=== PATIENT | male | born 1950 | race Caucasian/White ===

== ENCOUNTER → 2017-11-28 | Outpatient (CLI) | payer OTHER ==
[~2017-11-28] MED LIST: ARIP10 PO; CEPH500 PO; DOXY100 PO; LISI20; METO25ER; OXYACE5T PO; PRED10 PO; PROZAC PO; SULTRIDS PO
== END | disposition home or self-care (01) ==
LOC: LAB SHORT 07:40 → LAB 07:40
DX: C44.519 Basal cell carcinoma of skin of other part of trunk (principal)
CPT/HCPCS: 88305

== ENCOUNTER → 2018-10-19 | Outpatient (CLI) | payer OTHER | END | disposition home or self-care (01) | LOC: LAB SHORT 07:45 → LAB 07:45 | DX: D48.5 Neoplasm of uncertain behavior of skin (principal) | CPT/HCPCS: 88305 ==

== ENCOUNTER → 2018-11-06 | Outpatient (CLI) | payer OTHER | END | disposition home or self-care (01) | LOC: LAB SHORT 08:39 → PLD 08:39 | DX: C44.519 Basal cell carcinoma of skin of other part of trunk (principal) | CPT/HCPCS: 88305 ==

== ENCOUNTER → 2018-11-21 | Outpatient (CLI) | payer OTHER | LOC: PLD 15:07 → LAB SHORT 15:07 | DX: C44.310 Basal cell carcinoma of skin of unspecified parts of face (principal) | CPT/HCPCS: 88305 ==

== ENCOUNTER → 2018-11-28 | Outpatient (CLI) | payer OTHER | END | disposition home or self-care (01) | LOC: LAB SHORT 08:14 → PLD 08:14 | DX: D04.5 Carcinoma in situ of skin of trunk (principal) | CPT/HCPCS: 88305 ==

== ENCOUNTER → 2019-01-09 | Outpatient (CLI) | payer OTHER | END | disposition home or self-care (01) | LOC: LAB SHORT 08:23 → PLD 08:23 | DX: D04.71 Carcinoma in situ of skin of right lower limb, including hip (principal) | CPT/HCPCS: 88305 ==

== ENCOUNTER → 2020-03-03 | Outpatient (CLI) | payer OTHER | END | disposition home or self-care (01) | LOC: LAB SHORT 15:05 → PLD 15:05 | DX: C44.612 Basal cell carcinoma of skin of right upper limb, including shoulder (principal); D04.62 Carcinoma in situ of skin of left upper limb, including shoulder | CPT/HCPCS: 88305 ==

== ENCOUNTER → 2020-03-18 | Outpatient (CLI) | payer OTHER | END | disposition home or self-care (01) | LOC: LAB SHORT 11:31 → LAB UCHC 11:31 | DX: I10 Essential (primary) hypertension (principal) | CPT/HCPCS: 82043 ==

== ENCOUNTER → 2020-03-20 | Outpatient (CLI) | payer OTHER | LOC: LAB SHORT 15:44 → PLD 15:44 | DX: C44.612 Basal cell carcinoma of skin of right upper limb, including shoulder (principal) | CPT/HCPCS: 88305 ==

== ENCOUNTER → 2020-05-07 | Outpatient (CLI) | payer OTHER | LOC: LAB SHORT 17:16 | DX: Z11.59 Encounter for screening for other viral diseases (principal) | CPT/HCPCS: 86803 ==

== ENCOUNTER → 2020-12-10 | Outpatient (CLI) | payer OTHER | END | disposition home or self-care (01) | LOC: LAB 11:44 → LAB SHORT 11:44 | DX: D04.62 Carcinoma in situ of skin of left upper limb, including shoulder (principal); L73.8 Other specified follicular disorders | CPT/HCPCS: 88305 ==

== ENCOUNTER → 2021-12-30 | Outpatient (CLI) | payer OTHER | END | disposition home or self-care (01) | LOC: LAB SHORT 07:43 → PLD 07:43 | DX: D04.62 Carcinoma in situ of skin of left upper limb, including shoulder (principal) | CPT/HCPCS: 88305 ==

== ENCOUNTER → 2022-08-31 | Outpatient (CLI) | payer OTHER ==
[2022-08-31 19:57] LABS: Thyroid Stimulating Hormone 1.89 uIU/mL (0.360-4.800)
== END | disposition home or self-care (01) ==
LOC: LAB 15:29 → LAB SHORT 15:29
PROVIDERS: Family Medicine
DX: F03.90 Unspecified dementia, unspecified severity, without behavioral disturbance, psychotic disturbance, mood disturbance, and anxiety (principal); R41.89 Other symptoms and signs involving cognitive functions and awareness
CPT/HCPCS: 82607; 82746; 84443

== ENCOUNTER 2022-09-29 16:48 | Emergency (ER) | payer OTHER ==
[~2022-09-29] VITALS: Ht 172.7 cm; Wt 63.5 kg
[2022-09-29] MEDS ORDERED: ASPI81CH PO (17:22)
[2022-09-29] MEDS ORDERED: Metformin HCl750 MG PO (17:23)
[2022-09-29] MEDS ORDERED: ABILIFY5 MG PO (17:23)
[2022-09-29] MEDS ORDERED: HYDR10 PO (17:23)
[2022-09-29] MEDS ORDERED: LISI20 PO (17:23)
[2022-09-29] MEDS ORDERED: ZOLOFT10013 PO (17:24)
[2022-09-29] MEDS ORDERED: BUPROPION XL150 M1 PO (17:24)
[2022-09-29] MEDS ORDERED: TRAZ150T57 PO (17:24)
[2022-09-29] MEDS ORDERED: CARVEDILOL3.125 MG PO (17:25)
[2022-09-29] MEDS ORDERED: AMLODIPINE BESY10 MG PO (17:25)
[2022-09-29] MEDS ORDERED: DONEPEZIL HCL10 M1 PO (17:25)
[2022-09-29] MEDS ORDERED: NEURONTIN300 MG PO (17:25)
[2022-09-29 17:51] LABS: BASOPHILS ABSOLUTE AUTO 0.02 K/mm3 (0.00-0.23); BASOPHILS PERCENT AUTO 0 % (0-2); EOSINOPHILS PERCENT AUTO 1 % (0-6); Hematocrit 40.3 % (37.0-53.0); Hemoglobin 13.4 g/dL (13.5-17.5); IMMATURE GRAN ABSOLUTE AUTO 0.03 K/mm3 (0.00-0.10); IMMATURE GRAN PERCENT AUTO 0 % (0-1); LYMPHOCYTES PERCENT AUTO 24 % (21-46); MONOCYTES ABSOLUTE AUTO 0.35 K/mm3 (0.16-1.47); MONOCYTES PERCENT AUTO 4 % (4-13); Mean Corpuscular HGB Conc 33.3 g/dL (31.5-36.5); Mean Corpuscular Volume 84 fL (80-100); Mean Platelet Volume 9.6 fL (9.1-12.4); NEUTROPHILS ABSOLUTE AUTO 5.69 K/mm3 (1.96-9.15); NEUTROPHILS PERCENT AUTO 70 % (41-73); Platelet Count 285 K/mm3 (150-400); RDW Coefficient Variation 12.8 % (11.7-14.2); RDW Standard Deviation 39.7 fL (35.1-46.3); Red Blood Cell Count 4.78 M/mm3 (4.30-5.90); White Blood Cell Count 8.19 K/mm3 (4.00-11.30)
[2022-09-29 18:12] LABS: Albumin, Blood 3.6 g/dL (3.4-5.0); Albumin/Globulin Ratio 0.9 (0.8-1.8); Bilirubin, Total 0.5 mg/dL (0.1-1.0); Bun/Creatinine Ratio 18.2 (12.0-20.0); Calcium, Blood 9.1 mg/dL (8.5-10.1); Creatinine, Blood 2.74 mg/dL (0.60-1.20); Globulin, Blood 4.1 g/dL (2.2-4.0); Potassium, Blood 3.8 mmol/L (3.5-5.5); Total Protein, Blood 7.7 g/dL (6.4-8.2)
[2022-09-29 18:35] LABS: Creatine Kinase MB 19.8 ng/mL (0.0-3.6); Magnesium, Blood 1.6 mg/dL (1.6-2.4)
[2022-09-29 18:42] LABS: Ethanol (Alcohol), Blood, Med <3 mg/dL
[2022-09-29 19:01] LABS: CPK Creatine Kinase 3293 U/L (39-308); Creatine Kinase MB Index 0.6 (0.0-4.0)
[2022-09-29 19:33] LABS: Influenza A, PCR NEGATIVE (NEGATIVE); Influenza B, PCR NEGATIVE (NEGATIVE); Resp Syncytial Virus, PCR NEGATIVE (NEGATIVE); SARS-Cov-2 (COVID-19) PCR, MMC NEGATIVE (NEGATIVE)
[2022-09-29 21:19] VITALS: BP 160/107
== END 2022-09-29 21:38 | disposition home or self-care (01) ==
LOC: ER 16:48
PROVIDERS: Emergency Medicine; Student in an Organized Health Care Education/Training Program
DX: Z04.3 Encounter for examination and observation following other accident (principal); R53.1 Weakness; F03.90 Unspecified dementia, unspecified severity, without behavioral disturbance, psychotic disturbance, mood disturbance, and anxiety; W19.XXXA Unspecified fall, initial encounter; Z79.899 Other long term (current) drug therapy; Z79.82 Long term (current) use of aspirin; Z79.84 Long term (current) use of oral hypoglycemic drugs; Z87.891 Personal history of nicotine dependence
CPT/HCPCS: 0241U; 70450; 71045; 80053; 82550; 82553; 83735; 84443; 84484; 85025; 93005; 93010; 96360; 96361; 99285-25; G0480; J7120

== ENCOUNTER 2022-10-22 14:18 | Emergency (ER) | payer OTHER ==
[~2022-10-22] VITALS: Ht 172.7 cm; Wt 90.7 kg
[~2022-10-22 14:18] MED LIST changes: +ABILIFY5 MG PO; +AMLODIPINE BESY10 MG PO; +ASPI81CH PO; +BUPROPION XL150 M1 PO; +CARVEDILOL3.125 MG PO; +DONEPEZIL HCL10 M1 PO; +HYDR10 PO; +LISI20 PO; +Metformin HCl750 MG PO; +NEURONTIN300 MG PO; +TRAZ150T57 PO; +ZOLOFT10013 PO
[2022-10-22 16:02] LABS: BASOPHILS ABSOLUTE AUTO 0.03 K/mm3 (0.00-0.23); BASOPHILS PERCENT AUTO 0 % (0-2); EOSINOPHILS ABSOLUTE AUTO 0.19 K/mm3 (0.00-0.68); EOSINOPHILS PERCENT AUTO 2 % (0-6); Hematocrit 42.7 % (37.0-53.0); IMMATURE GRAN ABSOLUTE AUTO 0.02 K/mm3 (0.00-0.10); IMMATURE GRAN PERCENT AUTO 0 % (0-1); LYMPHOCYTES ABSOLUTE AUTO 2.56 K/mm3 (0.84-5.20); LYMPHOCYTES PERCENT AUTO 33 % (21-46); MONOCYTES ABSOLUTE AUTO 0.41 K/mm3 (0.16-1.47); MONOCYTES PERCENT AUTO 5 % (4-13); Mean Corpuscular HGB 28.6 pg (26.0-34.0); Mean Corpuscular HGB Conc 32.8 g/dL (31.5-36.5); Mean Corpuscular Volume 87 fL (80-100); NEUTROPHILS ABSOLUTE AUTO 4.55 K/mm3 (1.96-9.15); NEUTROPHILS PERCENT AUTO 59 % (41-73); Platelet Count 294 K/mm3 (150-400); RDW Coefficient Variation 13.3 % (11.7-14.2); RDW Standard Deviation 41.9 fL (35.1-46.3); White Blood Cell Count 7.76 K/mm3 (4.00-11.30)
[2022-10-22 16:21] LABS: Albumin/Globulin Ratio 0.9 (0.8-1.8); Bilirubin, Total 0.5 mg/dL (0.1-1.0); Bun/Creatinine Ratio 14.8 (12.0-20.0); Calcium, Blood 8.5 mg/dL (8.5-10.1); Creatinine, Blood 1.82 mg/dL (0.60-1.20); Globulin, Blood 4.5 g/dL (2.2-4.0); Potassium, Blood 4.2 mmol/L (3.5-5.5); Total Protein, Blood 8.5 g/dL (6.4-8.2)
[2022-10-22 19:42] VITALS: BP 200/104
== END 2022-10-22 19:58 | disposition home or self-care (01) ==
LOC: ER 14:18
PROVIDERS: Physician Assistant
DX: I10 Essential (primary) hypertension (principal); E11.9 Type 2 diabetes mellitus without complications; Z79.82 Long term (current) use of aspirin; Z79.84 Long term (current) use of oral hypoglycemic drugs; Z79.899 Other long term (current) drug therapy; Z87.891 Personal history of nicotine dependence
CPT/HCPCS: 80053; 84484; 85025; 93005; 93010; J0360

== ENCOUNTER 2022-12-28 08:00 | Emergency (ER) | payer OTHER ==
[~2022-12-28] VITALS: Ht 172.7 cm; Wt 77.1 kg
[~2022-12-28 08:00] MED LIST changes: +ABILIFY MYCITE2 M2 PO; +ALDACTONE25 MG PO; +ATOR40TA PO; +BUPR100ER PO; -BUPROPION XL150 M1 PO; +Budeprion Xl300 MG PO; +CARV6.25 PO; +Cyclobenzaprine5 MG PO; +FEROSUL325 M1 PO; +FISH OIL 1,2001 EAC4 PO; +GLIP5ER PO; +HYDCHL25 PO; +HYDRA50 PO; +PROAIR RESPICL90 MCG INH; +VITAMIN D31250 MC2 PO; +Zoloft50 MG PO
[2022-12-28 09:06] LABS: BASOPHILS ABSOLUTE AUTO 0.03 K/mm3 (0.00-0.23); BASOPHILS PERCENT AUTO 0 % (0-2); EOSINOPHILS PERCENT AUTO 2 % (0-6); Hematocrit 43.9 % (37.0-53.0); Hemoglobin 14.2 g/dL (13.5-17.5); IMMATURE GRAN ABSOLUTE AUTO 0.01 K/mm3 (0.00-0.10); IMMATURE GRAN PERCENT AUTO 0 % (0-1); LYMPHOCYTES ABSOLUTE AUTO 2.49 K/mm3 (0.84-5.20); LYMPHOCYTES PERCENT AUTO 30 % (21-46); MONOCYTES ABSOLUTE AUTO 0.52 K/mm3 (0.16-1.47); MONOCYTES PERCENT AUTO 6 % (4-13); Mean Corpuscular HGB 28.4 pg (26.0-34.0); Mean Corpuscular HGB Conc 32.3 g/dL (31.5-36.5); Mean Corpuscular Volume 88 fL (80-100); Mean Platelet Volume 10.7 fL (9.1-12.4); NEUTROPHILS ABSOLUTE AUTO 5.04 K/mm3 (1.96-9.15); NEUTROPHILS PERCENT AUTO 61 % (41-73); Platelet Count 217 K/mm3 (150-400); RDW Coefficient Variation 13.1 % (11.7-14.2); RDW Standard Deviation 42.2 fL (35.1-46.3); White Blood Cell Count 8.29 K/mm3 (4.00-11.30)
[2022-12-28 09:29] LABS: Bilirubin, Total 0.6 mg/dL (0.1-1.0); Bun/Creatinine Ratio 14.1 (12.0-20.0); Creatinine, Blood 3.19 mg/dL (0.60-1.20); Globulin, Blood 4.2 g/dL (2.2-4.0); Potassium, Blood 3.7 mmol/L (3.5-5.5); Total Protein, Blood 8.2 g/dL (6.4-8.2)
[2022-12-28 10:53] VITALS: BP 153/93
== END 2022-12-28 11:40 | disposition home or self-care (01) ==
LOC: ER 08:00
PROVIDERS: Emergency Medicine
DX: I12.9 Hypertensive chronic kidney disease with stage 1 through stage 4 chronic kidney disease, or unspecified chronic kidney disease (principal); E11.22 Type 2 diabetes mellitus with diabetic chronic kidney disease; N18.9 Chronic kidney disease, unspecified; S80.02XA Contusion of left knee, initial encounter; S80.01XA Contusion of right knee, initial encounter; S50.02XA Contusion of left elbow, initial encounter; S50.01XA Contusion of right elbow, initial encounter; S30.811A Abrasion of abdominal wall, initial encounter; F17.200 Nicotine dependence, unspecified, uncomplicated; Z79.82 Long term (current) use of aspirin; Z79.899 Other long term (current) drug therapy; W19.XXXA Unspecified fall, initial encounter
CPT/HCPCS: 80053; 85025; J7030

== ENCOUNTER 2023-01-05 13:37 | Emergency (ER) | payer OTHER ==
[~2023-01-05] VITALS: Ht 177.8 cm; Wt 81.7 kg
[2023-01-05 14:11] LABS: Source, Urine Voided
[2023-01-05 14:14] LABS: BASOPHILS ABSOLUTE AUTO 0.02 K/mm3 (0.00-0.23); BASOPHILS PERCENT AUTO 0 % (0-2); EOSINOPHILS PERCENT AUTO 0 % (0-6); Hematocrit 40.3 % (37.0-53.0); Hemoglobin 13.1 g/dL (13.5-17.5); IMMATURE GRAN ABSOLUTE AUTO 0.03 K/mm3 (0.00-0.10); IMMATURE GRAN PERCENT AUTO 0 % (0-1); LYMPHOCYTES PERCENT AUTO 21 % (21-46); MONOCYTES ABSOLUTE AUTO 0.73 K/mm3 (0.16-1.47); MONOCYTES PERCENT AUTO 9 % (4-13); Mean Corpuscular HGB 28.5 pg (26.0-34.0); Mean Corpuscular HGB Conc 32.5 g/dL (31.5-36.5); Mean Corpuscular Volume 88 fL (80-100); Mean Platelet Volume 10.7 fL (9.1-12.4); NEUTROPHILS ABSOLUTE AUTO 5.41 K/mm3 (1.96-9.15); NEUTROPHILS PERCENT AUTO 69 % (41-73); Platelet Count 241 K/mm3 (150-400); RDW Coefficient Variation 13.2 % (11.7-14.2); RDW Standard Deviation 41.9 fL (35.1-46.3); White Blood Cell Count 7.79 K/mm3 (4.00-11.30)
[2023-01-05 14:30] LABS: Appearance, Urine Clear (Clear); Bilirubin, Urine Neg (Neg); Blood, Urine 2+ (Neg); Color, Urine Yellow (P-Yellow); Glucose Qualitative, Urine 1+ (Neg); Ketones, Urine Neg (Neg); Leukocyte Esterase, Urine Neg (Neg); Nitrite, Urine Neg (Neg); Protein, Urine 4+ (Neg); Urobilinogen, Urine NORM (Normal)
[2023-01-05 14:42] LABS: Albumin, Blood 3.7 g/dL (3.4-5.0); Albumin/Globulin Ratio 0.9 (0.8-1.8); Bilirubin, Total 0.4 mg/dL (0.1-1.0); Bun/Creatinine Ratio 17.6 (12.0-20.0); Creatinine, Blood 1.99 mg/dL (0.60-1.20); Globulin, Blood 4.3 g/dL (2.2-4.0)
[2023-01-05 14:50] LABS: Bacteria Many /hpf; Squamous Epithelial Cells Rare /hpf (Few)
[2023-01-05 19:31] VITALS: BP 196/100
== END 2023-01-05 20:24 | disposition home or self-care (01) ==
LOC: ER 13:37
PROVIDERS: Emergency Medicine
DX: S00.12XA Contusion of left eyelid and periocular area, initial encounter (principal); W18.30XA Fall on same level, unspecified, initial encounter; F17.200 Nicotine dependence, unspecified, uncomplicated; Z79.51 Long term (current) use of inhaled steroids; Z79.899 Other long term (current) drug therapy; E11.9 Type 2 diabetes mellitus without complications
CPT/HCPCS: 70450; 70486; 71046; 72125; 80053; 81001; 85025; 87086; 93005; 93010; 96360; 99285-25; J7030

== ENCOUNTER 2023-01-06 16:54 | Inpatient (IN) | payer OTHER ==
[~2023-01-06] VITALS: Ht 172.7 cm; Wt 71.1 kg
[2023-01-06 18:00] LABS: BASOPHILS ABSOLUTE AUTO 0.01 K/mm3 (0.00-0.23); BASOPHILS PERCENT AUTO 0 % (0-2); EOSINOPHILS ABSOLUTE AUTO 0.01 K/mm3 (0.00-0.68); EOSINOPHILS PERCENT AUTO 0 % (0-6); Hemoglobin 13.9 g/dL (13.5-17.5); IMMATURE GRAN ABSOLUTE AUTO 0.03 K/mm3 (0.00-0.10); IMMATURE GRAN PERCENT AUTO 1 % (0-1); LYMPHOCYTES ABSOLUTE AUTO 1.51 K/mm3 (0.84-5.20); LYMPHOCYTES PERCENT AUTO 23 % (21-46); MONOCYTES ABSOLUTE AUTO 0.55 K/mm3 (0.16-1.47); MONOCYTES PERCENT AUTO 8 % (4-13); Mean Corpuscular HGB 28.7 pg (26.0-34.0); Mean Corpuscular HGB Conc 33.1 g/dL (31.5-36.5); Mean Corpuscular Volume 87 fL (80-100); Mean Platelet Volume 10.8 fL (9.1-12.4); NEUTROPHILS ABSOLUTE AUTO 4.52 K/mm3 (1.96-9.15); NEUTROPHILS PERCENT AUTO 68 % (41-73); Platelet Count 247 K/mm3 (150-400); RDW Coefficient Variation 13.2 % (11.7-14.2); RDW Standard Deviation 41.1 fL (35.1-46.3); Red Blood Cell Count 4.85 M/mm3 (4.30-5.90); White Blood Cell Count 6.63 K/mm3 (4.00-11.30)
[2023-01-06 18:18] LABS: Magnesium, Blood 2.1 mg/dL (1.6-2.4); Salicylate <1.7 mg/dL (2.8-20.0)
[2023-01-06 18:26] LABS: Alanine Aminotransfer (ALT/SGP 27 U/L (12-78); Albumin, Blood 3.8 g/dL (3.4-5.0); Albumin/Globulin Ratio 0.8 (0.8-1.8); Alk Phos 96 U/L (50-136); Anion Gap 5 mmol/L (6-16); Aspartate Aminotrans (AST/SGOT 36 U/L (12-37); Bilirubin, Total 0.4 mg/dL (0.1-1.0); Blood Urea Nitrogen 44 mg/dL (8-24); CO2, Blood 28 mmol/L (21-32); Calcium, Blood 9.2 mg/dL (8.5-10.1); Chloride, Blood 108 mmol/L (98-108); Globulin, Blood 4.7 g/dL (2.2-4.0); Glomerular Filtration Rate 33 (60-); Glucose, Blood 102 mg/dL (70-99); Phosphorus, Blood 3.7 mg/dL (2.5-4.9); Sodium, Blood 141 mmol/L (136-145); Total Protein, Blood 8.5 g/dL (6.4-8.2)
[2023-01-06 18:27] LABS: Acetaminophen, Random <2.0 ug/mL (10.0-30.0)
[2023-01-06 18:27] LABS: International Normalized Ratio 0.96; Prothrombin Time Results 10.1 Sec (9.7-11.5)
[2023-01-06 18:50] LABS: Base Excess Venous 3.3 mmol/L; Bicarbonate Venous 26.7 mmol/L (24.0-30.0); PCO2 Venous 44.9 mmHg (38-42)
[2023-01-06 18:50] LABS: Source, Urine Clean Catch
[2023-01-06 18:56] LABS: Bilirubin, Urine Neg (Neg); Blood, Urine 3+ (Neg); Color, Urine Yellow (P-Yellow); Glucose Qualitative, Urine Neg (Neg); Ketones, Urine Neg (Neg); Leukocyte Esterase, Urine Neg (Neg); Nitrite, Urine Neg (Neg); Protein, Urine 3+ (Neg); Urobilinogen, Urine NORM (Normal)
[2023-01-06 19:04] LABS: Bacteria Few /hpf; Squamous Epithelial Cells Rare /hpf (Few); White Blood Cells, Urine 0-2 /hpf (0-5)
[2023-01-06 19:10] LABS: Appearance, Urine Hazy (Clear)
[2023-01-06 19:35] LABS: Influenza A, PCR NEGATIVE (NEGATIVE); Influenza B, PCR NEGATIVE (NEGATIVE); Resp Syncytial Virus, PCR NEGATIVE (NEGATIVE)
[2023-01-06 20:14] LABS: SARS-Cov-2 (COVID-19) PCR, MMC POSITIVE (NEGATIVE)
[2023-01-06 23:42] VITALS: BP 164/89
[2023-01-07 05:18] VITALS: BP 122/74
[2023-01-07 05:37] LABS: BASOPHILS ABSOLUTE AUTO 0.01 K/mm3 (0.00-0.23); BASOPHILS PERCENT AUTO 0 % (0-2); EOSINOPHILS PERCENT AUTO 0 % (0-6); Hematocrit 39.3 % (37.0-53.0); Hemoglobin 12.8 g/dL (13.5-17.5); IMMATURE GRAN ABSOLUTE AUTO 0.03 K/mm3 (0.00-0.10); IMMATURE GRAN PERCENT AUTO 0 % (0-1); LYMPHOCYTES ABSOLUTE AUTO 2.05 K/mm3 (0.84-5.20); LYMPHOCYTES PERCENT AUTO 27 % (21-46); MONOCYTES ABSOLUTE AUTO 0.61 K/mm3 (0.16-1.47); MONOCYTES PERCENT AUTO 8 % (4-13); Mean Corpuscular HGB 28.6 pg (26.0-34.0); Mean Corpuscular HGB Conc 32.6 g/dL (31.5-36.5); Mean Corpuscular Volume 88 fL (80-100); Mean Platelet Volume 11.6 fL (9.1-12.4); NEUTROPHILS ABSOLUTE AUTO 5.03 K/mm3 (1.96-9.15); NEUTROPHILS PERCENT AUTO 65 % (41-73); Platelet Count 239 K/mm3 (150-400); RDW Coefficient Variation 13.4 % (11.7-14.2); RDW Standard Deviation 43.4 fL (35.1-46.3); Red Blood Cell Count 4.47 M/mm3 (4.30-5.90); White Blood Cell Count 7.73 K/mm3 (4.00-11.30)
[2023-01-07 06:04] LABS: Albumin, Blood 3.3 g/dL (3.4-5.0); Albumin/Globulin Ratio 0.8 (0.8-1.8); Bilirubin, Total 0.3 mg/dL (0.1-1.0); Bun/Creatinine Ratio 18.7 (12.0-20.0); Calcium, Blood 8.8 mg/dL (8.5-10.1); Globulin, Blood 4.1 g/dL (2.2-4.0); Potassium, Blood 3.9 mmol/L (3.5-5.5); Total Protein, Blood 7.4 g/dL (6.4-8.2)
[2023-01-07 08:05] VITALS: BP 128/72
--- NOTE | 2023-01-07 13:36 | NUR ---
MD CALL DR CORONA CALLED TO NOTIFY OF PT UPDATE. PT HAS NOT VOIDED. CONDOM CATH WAS PLACED TO GTE URINE TOX BUT NO VOID. BLADDER SCAN 175CC. LIQUID DIARRHEA X 3 TODAY. PT SLEEPY, FALLS ASLEEP MID INTERVENTION. WAS ABLE TO CONSUME AN ENSURE FOR LUNCH. NO NEW ORDERS, MD WILL REVIEW.
--- NOTE | 2023-01-07 15:32 | NUR ---
Brief supportive visit this afternoon. Pt is known to this mortgage underwriter from last hospital stay. Pt resting in bed with his eyes closed. Pt very briefly opens his eyes to verbal stimuli then quickly drift back to sleep. Pt appears comfortable with no S/S of distress at this time. Spoke with Primary RN Loren and discussed case. Pt has remained sleepy and lethargic throughout the shift. Called and spoke with Pt's sister Sara. Sara reports remembering conversation that took place with her and Pt regarding code status wishes. Sara reports Pt's wishes remain the same for DNR as far as she is aware. Called and spoke with Dr Mcmillan. Discussed conversation from last hospital stay and Pt's wishes for DNR with sister Sara reporting Pt's wishes remain the same. Dr Mcmillan will discuss with Dr Reyes. Palliative Care will remain available
[2023-01-07 15:58] VITALS: BP 149/68
[2023-01-07 15:59] VITALS: BP 149/68
--- NOTE | 2023-01-07 16:12 | NUR ---
MD CALL. IVF INCREASED PER MD ORDER, LUNGS NOW SOUNDS MORE MOIST, SATS 92% ON RA. DR CORONA CALLED AND SHE WILL REVIEW ORDERS.
--- NOTE | 2023-01-07 16:13 | NUR ---
SHIFT SUMMARY MR ROGERS HAS BEEN VERY SLEEPY TODAY. HE GOT UP TO THE CHAIR THIS MORNING WITH PHYSICAL THERAPY BUT WAS FALLING ASLEEP MID ACTION WHEN OT ATTEMPTED TO GET HIM TO THE SIDE OF THE BED. HE IS ORIENTATED TO HIS NAME AND TO [facility], BUT OTHERWISE HAS ONE OR TWO WORD ANSWERS, LEFT EYE SWOLLEN AND SOME SWELLING TO THE RIGHT LOWER FACE. HE WAS ABLE TO TAKE HIS PILLS WHOLE WITH WATER AND FULL ASSISTANCE AND WAS ABLE TO DRINK ENSURE AT LUNCH WITH HELP. HE IS UNABLE TO LIFT THE DRINK TO HIS MOUTH. HE HAS BEEN INCONTINENT OF LIQUID STOOL 3+ TIMES SO FAR BUT HAS NOT URINATED. CONDOM CATHETER PLACED TO COLLECT URINE SAMPLE. MD ORDERED INCREASE IN IVF RATE BUT LUNG SOUNDS ARE MORE COARSE, SATS 92% ON ROOM AIR. AWAITING FURTHER ORDERS. BED LOW, BED ALARM ON, CALL LIGHT IN REACH.
[2023-01-07 17:43] LABS: U Amphetamine Screen Not Detected; U Barbituate Screen Not Detected; U Benzodiazapine Screen Not Detected; U Buprenorphine Screen Not Detected; U Cannabinoids Screen Not Detected; U Cocaine Screen Not Detected; U Methadone Screen Not Detected; U Methamphetamine Screen Not Detected; U Opiates Screen Not Detected; U Oxycodone Screen Not Detected; U Phencyclidine Screen Not Detected; U Propoxyphene Screen Not Detected
--- NOTE | 2023-01-07 18:25 | NUR ---
Received call back from Dr Mcmillan. Placed DNR order in [facility] per V/O from Dr Mcmillan.
[2023-01-07 20:56] VITALS: BP 156/70
[2023-01-08 01:21] VITALS: BP 134/64
[2023-01-08 04:54] LABS: BASOPHILS ABSOLUTE AUTO 0.01 K/mm3 (0.00-0.23); BASOPHILS PERCENT AUTO 0 % (0-2); EOSINOPHILS ABSOLUTE AUTO 0.01 K/mm3 (0.00-0.68); EOSINOPHILS PERCENT AUTO 0 % (0-6); Hematocrit 36.5 % (37.0-53.0); Hemoglobin 11.8 g/dL (13.5-17.5); IMMATURE GRAN ABSOLUTE AUTO 0.02 K/mm3 (0.00-0.10); IMMATURE GRAN PERCENT AUTO 0 % (0-1); LYMPHOCYTES ABSOLUTE AUTO 2.58 K/mm3 (0.84-5.20); LYMPHOCYTES PERCENT AUTO 43 % (21-46); MONOCYTES ABSOLUTE AUTO 0.38 K/mm3 (0.16-1.47); MONOCYTES PERCENT AUTO 6 % (4-13); Mean Corpuscular HGB 28.7 pg (26.0-34.0); Mean Corpuscular HGB Conc 32.3 g/dL (31.5-36.5); Mean Corpuscular Volume 89 fL (80-100); Mean Platelet Volume 10.5 fL (9.1-12.4); NEUTROPHILS ABSOLUTE AUTO 2.97 K/mm3 (1.96-9.15); NEUTROPHILS PERCENT AUTO 50 % (41-73); Platelet Count 199 K/mm3 (150-400); RDW Coefficient Variation 13.6 % (11.7-14.2); RDW Standard Deviation 44.3 fL (35.1-46.3); Red Blood Cell Count 4.11 M/mm3 (4.30-5.90); White Blood Cell Count 5.97 K/mm3 (4.00-11.30)
[2023-01-08 05:13] LABS: Albumin/Globulin Ratio 0.8 (0.8-1.8); Bilirubin, Total 0.2 mg/dL (0.1-1.0); Bun/Creatinine Ratio 17.9 (12.0-20.0); Calcium, Blood 8.1 mg/dL (8.5-10.1); Creatinine, Blood 3.46 mg/dL (0.60-1.20); Globulin, Blood 3.9 g/dL (2.2-4.0); Potassium, Blood 3.5 mmol/L (3.5-5.5); Total Protein, Blood 6.9 g/dL (6.4-8.2)
--- NOTE | 2023-01-08 06:41 | NUR ---
UNEVENTFUL NIGHT. PT TOLERATES PO MEDS 1-2 AT A TIME, BENEFITS FROM ENCOURAGEMENT TO SWALLOW PILLS. CONDOM CATHETER IN PLACE AND PATENT. LUNGS SOUND COARSE BUT PATIENT ABLE TO CLEAR THROAT, DIPPED TO 88% ON SATS, PLACED 2L NC. FIRE SAFETY REVIEWED.
[2023-01-08 07:51] VITALS: BP 140/60
--- NOTE | 2023-01-08 10:13 | NUR ---
RN NOTE MR ROGERS IS SLEEPY, AROUSES TO VOICE, ANSWERS IN 1-3 WORD ANSWERS. ORIENTATED TO SELF, AND 2022. TELE SR WITH PACS. DRANK ENSURE FOR BREAKFAST WITH ASSISTANCE AND TOOK MEDS WHOLE 1-2 AT A TIME. GIVEN BED BATH AND TURNED ONTO SIDE PROPPED WITH PILLOWS. HE'S ABLE TO HELP IN THE TURN BUT WEAK. LEFT EYE IS SWOLLEN, WAS CRUSTY BUT NOT CRUSTY CURRENTLY AFTER BATH. BED LOW, CALL LIGHT IN REACH AND BED ALARM ON.
--- NOTE | 2023-01-08 10:17 | NUR ---
ADDN. ON 2L N/C. TRIED ON ROOM AIR BUT DESAT TO 86%.
--- NOTE | 2023-01-08 16:12 | NUR ---
SHIFT SUMMARY MR ROGERS HAS BEEN VERY SLEEPY TODAY. HE RESPONDS TO VOICE, WILL SOMETIMES OPEN HIS RIGHT EYE AND SOMETIMES ANSWERS QUESTIONS WITH 1 OR 2 WORD ANSWERS. HE IS ABLE TO HELP WITH TURNS AND WILL GRASP THE SIDERAIL WHEN TURNING, BUT HE IS VERY WEAK. INCONTINENT OF LIQUID DIARRHEA FREQUENTLY. HIS PERINEAL AREA IS RED, BARRIER CREAM APPLIED AFTER CLEANING AND Q2HRLY TURNS AND REPOSITIONING. REMAINS ON OXYGEN 2L N/C TODAY. LOW UOP TO CONDOM CATHETER. ENCOURAGED TO DRINK PO FLUIDS - HE DRANK AN ENSURE WITH BREAKFAST, DIDN'T WANT LUNCH AND SOME WATER THIS AFTERNOON BUT OVERALL HIS PO INTAKE IS LOW. HE WAS UNABLE TO WORK WITH PHYSICAL THERAPY TODAY. HIS SISTER CALLED AND SAID THAT HE HAS BEEN VERY WEAK FOR THE PAST MONTH AND VOICED CONCERN REGARDING HOME SAFETY LIVING ALONE. BED LOW, CALL LIGHT IN REACH, BED ALARM ON.
[2023-01-08 16:28] VITALS: BP 120/57
--- NOTE | 2023-01-08 17:33 | NUR ---
RN NOTE TEMP 101.4, GIVEN TYLENOL PO. IMPROVED PO INTAKE; DRANK 480CC WHOLE MILK. O2 SAT 90-91% ON 3L N/C. DIET ADVANCED TO PUREE.
[2023-01-08 20:50] VITALS: BP 110/63
[2023-01-09 04:53] LABS: BASOPHILS ABSOLUTE AUTO 0.01 K/mm3 (0.00-0.23); BASOPHILS PERCENT AUTO 0 % (0-2); EOSINOPHILS ABSOLUTE AUTO 0.03 K/mm3 (0.00-0.68); EOSINOPHILS PERCENT AUTO 1 % (0-6); Hematocrit 38.6 % (37.0-53.0); Hemoglobin 12.1 g/dL (13.5-17.5); IMMATURE GRAN ABSOLUTE AUTO 0.02 K/mm3 (0.00-0.10); IMMATURE GRAN PERCENT AUTO 0 % (0-1); LYMPHOCYTES ABSOLUTE AUTO 3.03 K/mm3 (0.84-5.20); LYMPHOCYTES PERCENT AUTO 49 % (21-46); MONOCYTES ABSOLUTE AUTO 0.34 K/mm3 (0.16-1.47); MONOCYTES PERCENT AUTO 6 % (4-13); Mean Corpuscular HGB 28.1 pg (26.0-34.0); Mean Corpuscular HGB Conc 31.3 g/dL (31.5-36.5); Mean Corpuscular Volume 90 fL (80-100); Mean Platelet Volume 10.5 fL (9.1-12.4); NEUTROPHILS ABSOLUTE AUTO 2.77 K/mm3 (1.96-9.15); NEUTROPHILS PERCENT AUTO 45 % (41-73); Platelet Count 198 K/mm3 (150-400); Red Blood Cell Count 4.31 M/mm3 (4.30-5.90)
[2023-01-09 04:56] VITALS: BP 130/66
[2023-01-09 05:47] LABS: Albumin/Globulin Ratio 0.8 (0.8-1.8); Bilirubin, Total 0.2 mg/dL (0.1-1.0); Bun/Creatinine Ratio 19.7 (12.0-20.0); Calcium, Blood 8.4 mg/dL (8.5-10.1); Creatinine, Blood 4.37 mg/dL (0.60-1.20)
--- NOTE | 2023-01-09 07:42 | NUR ---
PATIENT CONTINUES TO BE MORE VERBAL THAN PREVIOUS SHIFTS, REQUESTING FLUIDS, URINE OUTPUT WAS LOW BUT BLADDER SCAN WAS 177 MLS. LOOSE BOWELS. STILL ON 2-3 L NC OTHERWISE NO ACUTE CHANGES NOTED. FIRE SAFETY REVIEWED.
[2023-01-09 08:14] VITALS: BP 116/70
[2023-01-09 08:16] VITALS: BP 116/70
--- NOTE | 2023-01-09 15:09 | NUR ---
SHIFT SUMMARY MR ROGERS HAS BEEN MORE AWAKE AND ALERT TODAY. HE HAS SPOKEN IN SENTENCES RATHER THAN JUST 1 OR 2 WORDS. HE GOT UP AND SAT IN THE CHAIR FOR A FEW HOURS WITH 1 PERSON ASSIST TO STAND AND TRANSFER. HIS STRENGTH HAS IMPROVED COMPARED TO YESTERDAY. TELEMETRY DISCONTINUED. ON OXYGEN 3L N/C WITH A HARSH MOIST COUGH. DRINKING WELL. STILL LOW UOP. HE STILL HAS DIARHHEA STOOL BUT LAST ONE WAS LESS LIQUID. BED AND CHAIR ALARMS IN USE. BED LOW, CALL LIGHT IN REACH.
[2023-01-09 15:29] LABS: Bun/Creatinine Ratio 21.7 (12.0-20.0); Calcium, Blood 7.8 mg/dL (8.5-10.1); Creatinine, Blood 4.15 mg/dL (0.60-1.20); Potassium, Blood 4.1 mmol/L (3.5-5.5)
[2023-01-09 17:12] VITALS: BP 127/64
[2023-01-09 20:06] VITALS: BP 139/68
[2023-01-10 03:35] VITALS: BP 151/70
[2023-01-10 05:09] LABS: Albumin, Blood 3.1 g/dL (3.4-5.0); Anion Gap 8 mmol/L (6-16); Blood Urea Nitrogen 80 mg/dL (8-24); CO2, Blood 23 mmol/L (21-32); Calcium, Blood 7.8 mg/dL (8.5-10.1); Chloride, Blood 112 mmol/L (98-108); Creatinine, Blood 3.08 mg/dL (0.60-1.20); Glomerular Filtration Rate 21 (60-); Glucose, Blood 98 mg/dL (70-99); Phosphorus, Blood 3.6 mg/dL (2.5-4.9); Potassium, Blood 3.5 mmol/L (3.5-5.5); Sodium, Blood 143 mmol/L (136-145)
--- NOTE | 2023-01-10 06:09 | NUR ---
INCREASING ORIENTATION, PHYSICAL ACTIVITY AND URINARY OUTPUT THIS SHIFT. CALLS APPROPRIATELY FOR URINAL AND OTHER NEEDS. SODIUM BICARB RUNNING CONTINUOUSLY AT FOR DURATION OF SHIFT. BM'S INCREASINGLY MORE FORMED, STILL SOFT. UP TO CHAIR WITH X1 ASSIST. FIRE SAFETY REVIEWED.
[2023-01-10 08:29] VITALS: BP 172/79
[2023-01-10 15:26] VITALS: BP 145/75
[2023-01-10 18:16] VITALS: BP 155/68
--- NOTE | 2023-01-10 18:26 | NUR ---
SUMMARY- PT A/O X3, DOESNT KNOW EXACT DATE. ABLE TO GET UP INTO CHAIR FOR MEALS. AMBULATED INTO BATHROOM WITH WALKER AND SBA. PT SLEEPS IN BETWEEN ACTIVITIES AND STATES HE'S BEEN PRETTY SLEEPY LAST WEEK OR SO. PT TOLERATING FOOD/ PUREE DIET. LUNGS DIM IN BASES, INC COUGH AND DEEP BREATH. STARTED ON PEP TX TO AID IN CLEARING SECRETIONS. MOIST COUGH, PT HAS BEEN ABLE TO CLEAR SECRESTION AND SWALLOW. OXYGEN HAS BEEN 2L/NC, SATS MID 90'S. BP ELEVATED IN AM AND COMES DOWN WITH AM MEDS. HR ALSO CAME DOWN IN LATE MORNING. O.T. STATES SHE HOOKED PT UP TO CONT PULSE OX AND HR LOW 42-[address] MENA MADE AWARE AT 1445 AND THAT PT NOT ON TELE. PT CHANGED FROM NA HCO3 TO LR AT 75. PT VOIDING BOTH CONT AND STRESS INCONT. WILL REPORT TO NOC CLARISSE
[2023-01-10 20:02] VITALS: BP 168/77
[2023-01-11 06:12] VITALS: BP 162/83
--- NOTE | 2023-01-11 06:19 | NUR ---
SHIFT SUMMARY PRN TYLENOL GIVEN X1 FOR GENERAL ACHES. OFFERED TESSALON PEARLS, PT STATED HE DID NOT NEED THIS BECAUSE HE DID NOT HAVE MUCH OF A COUGH. FIRE SAFETY REVIEWED, NO IGNITION SOURCES
[2023-01-11 07:21] LABS: Albumin, Blood 3.1 g/dL (3.4-5.0); Anion Gap 7 mmol/L (6-16); Blood Urea Nitrogen 54 mg/dL (8-24); CO2, Blood 26 mmol/L (21-32); Calcium, Blood 8.2 mg/dL (8.5-10.1); Chloride, Blood 111 mmol/L (98-108); Glomerular Filtration Rate 35 (60-); Glucose, Blood 105 mg/dL (70-99); Potassium, Blood 3.8 mmol/L (3.5-5.5); Sodium, Blood 144 mmol/L (136-145)
[2023-01-11 08:00] VITALS: BP 159/74
[2023-01-11 15:41] VITALS: BP 174/71
[2023-01-11 20:09] VITALS: BP 149/72
--- NOTE | 2023-01-11 20:14 | NUR ---
SUMMARY- PT A/O X3. MORE ALERT AND AWAKE TODAY. USES CALL LIGHT TO MAKE NEEDS KNOWN. JOVIAL AND TALKATIVE TODAY. PT USED THE URINAL TODAY AND HAD LESS URGE INCONT EPISODES. UP TO CHAIR FOR MEALS, TOLERATING FOOD AND FLUID. CONT IV LR AT 75. LUNGS CLEAR, DIM LOWER BASES, LESS COUGHING TODAY. SATS 95% 2LNC. PLAN FOR SNF AFTER 10 DAYS AFTER FIRST COVID +. APPROX MON 01/17- REPORTED TO [facility] RN.,
[2023-01-12 02:28] VITALS: BP 170/90
[2023-01-12 05:32] VITALS: BP 160/74
--- NOTE | 2023-01-12 06:16 | NUR ---
SHIFT SUMMARY PRN TYLENOL GIVEN X1 FOR GENERAL ACHES WITH POSITIVE EFFECT, PRN TESSALON PEARLS GIVEN FOR COUGH. PT DID NOT SLEEP MUCH TONIGHT. HR RECORDED 39 WAS NOT ACCURATE, RADIAL PULSE COUNTED AT 6O. FIRE SAFETY REVIEWED, NO IGNITION SOURCES
[2023-01-12 06:43] LABS: Bun/Creatinine Ratio 23.6 (12.0-20.0); Calcium, Blood 8.3 mg/dL (8.5-10.1); Creatinine, Blood 1.78 mg/dL (0.60-1.20); Potassium, Blood 3.9 mmol/L (3.5-5.5)
[2023-01-12 07:43] VITALS: BP 162/88
--- NOTE | 2023-01-12 13:51 | NUR ---
PHONE CALL FROM DOCTOR: DR. JERRELL BRAR CALLED STATING THAT BASED ON PATIENT'S OT AND PT EVALUATION, HE HAS BEEN CLEARED TO BE DISCHARGED HOME WITH HOME HEALTH. I DID VOICE MY CONCERNS WITH HIS HOME SAFETY WITH REPORT OF FREQUENT FALLS AND LIVING ALONE. PLAN IS TO STILL CONTINUE DISCHARGE HOME WITH HOME HEALTH. PATIENT DOES WISH TO GO HOME. WILL DISCUSS WITH PATIENT AT DURING DISCHARGE INSTRUCTIONS ON HOW READILY AVAILABLE HIS NEIGHBORS ARE TO HELP HIM AND BE THERE IF HE DOES FALL AGAIN. ALSO SEE WHAT HOME HEALTH THINKS BASED ON THEIR EVALUATION WHEN THEY GO SEE THE PATIENT AT HOME.
[2023-01-12 15:42] VITALS: BP 134/79
--- NOTE | 2023-01-12 17:28 | NUR ---
SHIFT SUMMARY: PT IS A 72 YEAR OLD MALE HERE FOR COVID. HE IS PLEASANT, COOPERATIVE, AND ALERT AND ORIENTED TO PERSON, PLACE, TIME, AND SITUATION. HE IS AWAITING PLACEMENT AT [facility] UNTIL HE TEST COVID NEGATIVE. COVID TEST TODAY CAME BACK POSITIVE. HE HAS BEEN UP TODAY WITH PT AND OT WITH GOOD RESULTS. HE USES THE CALL LIGHT APPROPRIATELY FOR RESTROOM ASSISTANCE WITH THE URINAL OR BEDSIDE COMMODE. HE HAS BEEN RESTING IN BED MAJORITY OF THE DAY INBETWEEN PERSONAL NEEDS AND THERAPY VISITS. CURRENTLY IN BED WITH CALL LIGHT WITHIN REACH.
[2023-01-12 20:31] VITALS: BP 161/69
[2023-01-13 02:39] VITALS: BP 154/75
[2023-01-13 05:15] LABS: Anion Gap 6 mmol/L (6-16); Blood Urea Nitrogen 39 mg/dL (8-24); Bun/Creatinine Ratio 21.9 (12.0-20.0); CO2, Blood 27 mmol/L (21-32); Calcium, Blood 8.2 mg/dL (8.5-10.1); Chloride, Blood 112 mmol/L (98-108); Creatinine, Blood 1.78 mg/dL (0.60-1.20); Glomerular Filtration Rate 40 (60-); Glucose, Blood 107 mg/dL (70-99); Phosphorus, Blood 2.6 mg/dL (2.5-4.9); Potassium, Blood 4.1 mmol/L (3.5-5.5); Sodium, Blood 145 mmol/L (136-145)
--- NOTE | 2023-01-13 05:38 | NUR ---
SHIFT SUMMARY 72 YR M ADMITTED ON 01/06/23 FOR COVID. DNR. NO ACUTE CHANGES THIS SHIFT. NO C/O PAIN OR DISCOMFORT THIS SHIFT. CALLS APPROPRIATELY FOR ASSISTANCE. CURRENTLY ON 2 L O2 W/ SATS IN THE MID 'S. PT HAS SLEPT FOR MOST OF THIS SHIFT.
[2023-01-13 07:49] VITALS: BP 156/84
--- NOTE | 2023-01-13 08:57 | NUR ---
DR. JERRELL BRAR SAW THE PATIENT THIS MORNING, PT C/O "THE SNIFFLES" VERBAL ORDER FROM DOCTOR TO START PATIENT ON LORATADINE 10 MG DAILY. ORDER PLACED IN THE EMAR WILL AWAIT FOR PHARMACY TO VERIFY AND GIVE WITH MORNING MEDICATIONS.
[2023-01-13 16:15] VITALS: BP 150/78
--- NOTE | 2023-01-13 17:57 | NUR ---
SHIFT SUMMARY: PT IS A 72 YEAR OLD MALE WHO IS ALERT AND ORIENTED TO PERSON, PLACE, TIME, AND SITUATION. HE IS HERE AWAITING PLACEMENT FOR [facility] POST HOSPITALIZATION FOR COVID. HE REMAINS COVID POSTIVE OF 01/12/23, THEREFORE THE PATIENT WILL NEED TO STAY AN ADDITIONAL 10 MORE DAYS PRIOR TO RETESTING AND POSSIBLE PLACEMENT AT [facility]. HE REMAINS PLEASANT AND COOPERATIVE WITH CARE. HE HAS BEEN ON ROOM AIR WITH GOOD OXYGEN SATURATION. HE DOES STATE THAT HIS SHORTNESS OF BREATH REAMINS THE SAME. HIS COUGH IS MORE WET TODAY THAN YESTERDAY AND HE STATES THAT HE IS NOW STARTING TO GET PHLEGM UP. HE IS OCCASIONALLY AMBULATORY TO THE RESTROOM, OR USES THE BEDSIDE COMMODE OR URINAL. HE SITS ON THE SIDE OF THE BED FOR MEALS. HE USES HIS CALL LIGHT APPROPRIATELY AND SHOWS NO SIGNS OR SYPMTOMS OF DISTRESS.
[2023-01-13 20:00] VITALS: BP 160/79
--- NOTE | 2023-01-14 05:09 | NUR ---
SHIFT SUMMARY 72 YR M ADMITTED ON 01/06/23 FOR COVID. DNR. NO ACUTE CHANGES THIS SHIFT. PT STATES THAT HE IS STARTING TO FEEL BETTER AND HAS HAD NO C/O PAIN OR DISCOMFORT THIS SHIFT. HE CALLS APPROPRIATELY FOR ASSISTANCE AND HAS SLEPT FOR MOST OF THIS SHIFT.
[2023-01-14 06:27] VITALS: BP 157/75
[2023-01-14 07:56] VITALS: BP 190/79
[2023-01-14 10:17] VITALS: BP 136/73
[2023-01-14 16:23] VITALS: BP 161/83
--- NOTE | 2023-01-14 18:12 | NUR ---
SHIFT SUMMARY: PT IS A 72 YEAR OLD MALE WHO IS ALERT AND ORIENTED TO PERSON, PLACE, AND SITUATION, HE DID STRUGGLE WITH REPORTING THE TIME TODAY. HE CONTNUES TO BE PLEASANT AND COOPERATIVE WITH CARE. OVERALL UNREMARKABLE SHIFT PATIENT IS AWAITING PLACEMENT TO [facility] POST POSITIVE COVID, PLAN IS TO D/C 01/16/23. PT STATES THAT HE IS FEELING BETTER. HIS COUGH HAS PROGRESSED FROM A DRY COUGH TO A MORE WET, LOOSE, PRODUCTIVE COUGH. HE CONTINUES TO USE THE URINAL AND BEDSIDE COMMODE. HE IS NOT MOTIVATED TO GET OUT OF BED DESPITE STAFF ENCOURAGMENT. HE DID SIT IN THE BEDSIDE CHAIR FOR LUNCH FOR 30 MINUTUES. IN BED NOW, CALL LIGHT WITHIN REACH, NO SIGNS OF SYMPTOMS OF DISTRESS.
[2023-01-14 19:21] VITALS: BP 151/68
--- NOTE | 2023-01-15 04:44 | NUR ---
SHIFT SUMMARY PT A&O X3, COOPERATIVE WITH CARE. INDEPENDENT IN ROOM, NEEDS HELP WITH URINAL OR BEDSIDE COMMODE AT TIMES. PT IS COVID POSITIVE AND AWAITING PLACEMENT TO [facility]. PT RESTING MOST OF NIGHT WITH NO COMPLAINTS OF PAIN OR DISCOMFORT. BED KEPT IN LOWEST POSITION WITH CALL LIGHT YVETTE PALOMARES. CALLS APPROPRIATELY FOR HIS NEEDS.
[2023-01-15 05:44] VITALS: BP 154/84
[2023-01-15 07:49] VITALS: BP 158/75
[2023-01-15 16:10] VITALS: BP 156/79
[2023-01-15 17:37] VITALS: BP 129/64
--- NOTE | 2023-01-15 17:50 | NUR ---
ASSUMPTION OF CARE FROM KIMBERLY ARVIZU AT 1545, ASSESSMENT OF RESPIRATORY AT 1600, RIGHT LUNG WHEEZE, PATIENT REPORTS MILD SHORTNESS OF BREATH, BETTER WITH SITTING UPRIGTH. CALL PLACED TO RT REQUESTING BREATHING TREATMENT.
[2023-01-15 19:22] VITALS: BP 139/79
[2023-01-16 03:51] VITALS: BP 162/78
--- NOTE | 2023-01-16 04:06 | NUR ---
SHIFT SUMMARY PATIENT HAD NO ACUTE CHANGES. AXOX 3 AND SBA TO BSC. REPORTS BREATHING IS IMPROVING. PIV REMAINS INTACT. DENIES CHEST PAIN, SOB, AND N/V. VSS/AFEBRILE. REPORTED COUGH AND TESSALON 200 MG GIVEN X ONE. COOPERATIVE WITH CARE. CALL LIGHT IN REACH. BED IN LOWEST POSITION. WILL CONTINUE TO MONITOR UNTIL DAY SHIFT NURSE ASSUMES CARE.
[2023-01-16 08:13] VITALS: BP 157/79
[2023-01-16 08:14] VITALS: BP 157/79
--- NOTE | 2023-01-16 11:30 | NUR ---
THIS RN TRIES AT 1045 TO CALL REPORT TO [facility]. NO ANSWER. AGAIN AT 1105 WHEN TRANSPORT ARRIVES TO TAKE PATIENT TO FACILITY. AND AGAIN AT 1120 NO ANSWER. YUDI ROBBDERMATOLOGY NURSE NOTIFIED ABOUT INABILITY TO REACH ANYONE AT FACILITY FOR REPORT. WILL REMAIN AVAILABLE FOR REPORT FOR THIS PAITENT SHOULD SOMEONE FROM FACILITY CALL FOR REPORT. ANNELIESE MARTINEZ RN
== END 2023-01-16 10:58 | DRG 177 ==
LOC: ER 16:54 → MEDS 21:06 → ENPENDDIS 01-12 15:29 → MEDS 01-16 10:58
PROVIDERS: Emergency Medicine; Family Medicine; Internal Medicine; Student in an Organized Health Care Education/Training Program; ADMIT Internal Medicine
PROC: XW033E5 Introduction of Remdesivir Anti-infective into Peripheral Vein, Percutaneous Approach, New Technology Group 5 (ICD-10-PCS; principal; 2023-01-07)
PROC: 8E0ZXY6 Isolation (ICD-10-PCS; 2023-01-07)
DX: U07.1 COVID-19 (principal); G92.8 Other toxic encephalopathy; J96.01 Acute respiratory failure with hypoxia; N17.0 Acute kidney failure with tubular necrosis; J44.1 Chronic obstructive pulmonary disease with (acute) exacerbation; M54.9 Dorsalgia, unspecified; G89.29 Other chronic pain; F31.9 Bipolar disorder, unspecified; Z66 Do not resuscitate; Z51.5 Encounter for palliative care; E78.00 Pure hypercholesterolemia, unspecified; F03.90 Unspecified dementia, unspecified severity, without behavioral disturbance, psychotic disturbance, mood disturbance, and anxiety; J44.9 Chronic obstructive pulmonary disease, unspecified; I12.9 Hypertensive chronic kidney disease with stage 1 through stage 4 chronic kidney disease, or unspecified chronic kidney disease; E11.22 Type 2 diabetes mellitus with diabetic chronic kidney disease; N18.32 Chronic kidney disease, stage 3b; F17.210 Nicotine dependence, cigarettes, uncomplicated; F15.11 Other stimulant abuse, in remission; R29.6 Repeated falls; J30.9 Allergic rhinitis, unspecified; E86.0 Dehydration; F12.90 Cannabis use, unspecified, uncomplicated; R62.7 Adult failure to thrive; Z68.25 Body mass index [BMI] 25.0-25.9, adult; Z79.82 Long term (current) use of aspirin; Z79.899 Other long term (current) drug therapy; Z91.81 History of falling
CPT/HCPCS: 0241U; 36415; 51701; 70450; 71045; 71046; 80048; 80053; 80069; 81001; 82140; 82803; 82947; 83735; 83880; 84100; 84443; 85025; 85610; 85730; 87426; 87811; 92610; 93005; 93010; 94640; 94664; 94760; 96372-59; 97110; 97116; 97162; 97166; 97530; 97535; 99285-25; A9270; G0480; J0248; J1644; J2405; J7030; J7050; J7120

== ENCOUNTER → 2023-03-02 | Outpatient (CLI) | payer OTHER ==
[~2023-03-02] MED LIST changes: +CLOP75 PO
== END ==
LOC: LAB SHORT 15:05 → PLD 15:05 → LAB 15:05
DX: R23.8 Other skin changes (principal)
CPT/HCPCS: 88341; 88342

== ENCOUNTER → 2023-03-10 | Outpatient (CLI) | payer OTHER ==
[2023-03-10 17:12] LABS: Hematocrit 39.4 % (37.0-53.0); Hemoglobin 12.4 g/dL (13.5-17.5); Mean Corpuscular HGB Conc 31.5 g/dL (31.5-36.5); Mean Corpuscular Volume 89 fL (80-100); Mean Platelet Volume 12.2 fL (9.1-12.4); Platelet Count 204 K/mm3 (150-400); RDW Coefficient Variation 13.4 % (11.7-14.2); RDW Standard Deviation 43.6 fL (35.1-46.3); Red Blood Cell Count 4.43 M/mm3 (4.30-5.90); White Blood Cell Count 8.38 K/mm3 (4.00-11.30)
[2023-03-10 19:32] LABS: Albumin, Blood 4.3 g/dL (3.4-5.0); Albumin/Globulin Ratio 0.9 (0.8-1.8); Bilirubin, Total 0.4 mg/dL (0.1-1.0); Bun/Creatinine Ratio 17.1 (12.0-20.0); Calcium, Blood 8.6 mg/dL (8.5-10.1); Creatinine, Blood 1.75 mg/dL (0.60-1.20); Globulin, Blood 4.9 g/dL (2.2-4.0); Potassium, Blood 4.7 mmol/L (3.5-5.5); Total Protein, Blood 9.2 g/dL (6.4-8.2)
== END ==
LOC: LAB SHORT 14:20 → LAB 14:20
PROVIDERS: Family Medicine
DX: I12.9 Hypertensive chronic kidney disease with stage 1 through stage 4 chronic kidney disease, or unspecified chronic kidney disease (principal); N18.9 Chronic kidney disease, unspecified
CPT/HCPCS: 80053; 83880; 85027

== ENCOUNTER 2023-03-15 12:45 | Inpatient (IN) | payer OTHER ==
[~2023-03-15] VITALS: Ht 172.7 cm; Wt 78.1 kg
[~2023-03-15 12:45] MED LIST changes: -CLOP75 PO
[2023-03-15 13:15] LABS: BASOPHILS ABSOLUTE AUTO 0.03 K/mm3 (0.00-0.23); BASOPHILS PERCENT AUTO 0 % (0-2); EOSINOPHILS ABSOLUTE AUTO 0.04 K/mm3 (0.00-0.68); EOSINOPHILS PERCENT AUTO 1 % (0-6); Hematocrit 39.8 % (37.0-53.0); Hemoglobin 12.8 g/dL (13.5-17.5); IMMATURE GRAN ABSOLUTE AUTO 0.01 K/mm3 (0.00-0.10); IMMATURE GRAN PERCENT AUTO 0 % (0-1); LYMPHOCYTES ABSOLUTE AUTO 1.84 K/mm3 (0.84-5.20); LYMPHOCYTES PERCENT AUTO 23 % (21-46); MONOCYTES ABSOLUTE AUTO 0.36 K/mm3 (0.16-1.47); MONOCYTES PERCENT AUTO 5 % (4-13); Mean Corpuscular HGB 28.3 pg (26.0-34.0); Mean Corpuscular HGB Conc 32.2 g/dL (31.5-36.5); Mean Corpuscular Volume 88 fL (80-100); Mean Platelet Volume 10.5 fL (9.1-12.4); NEUTROPHILS ABSOLUTE AUTO 5.77 K/mm3 (1.96-9.15); NEUTROPHILS PERCENT AUTO 72 % (41-73); Platelet Count 240 K/mm3 (150-400); RDW Coefficient Variation 13.4 % (11.7-14.2); RDW Standard Deviation 43.4 fL (35.1-46.3); Red Blood Cell Count 4.52 M/mm3 (4.30-5.90); White Blood Cell Count 8.05 K/mm3 (4.00-11.30)
[2023-03-15 13:42] LABS: Albumin/Globulin Ratio 0.9 (0.8-1.8); Bun/Creatinine Ratio 19.5 (12.0-20.0); Calcium, Blood 9.1 mg/dL (8.5-10.1); Creatinine, Blood 1.69 mg/dL (0.60-1.20); Globulin, Blood 4.6 g/dL (2.2-4.0); Potassium, Blood 3.7 mmol/L (3.5-5.5); Total Protein, Blood 8.6 g/dL (6.4-8.2)
[2023-03-15 15:48] LABS: Source, Urine Voided
[2023-03-15 15:55] LABS: Bilirubin, Urine Neg (Neg); Blood, Urine 2+ (Neg); Color, Urine Yellow (P-Yellow); Glucose Qualitative, Urine Neg (Neg); Ketones, Urine 1+ (Neg); Leukocyte Esterase, Urine 1+ (Neg); Nitrite, Urine Neg (Neg); Protein, Urine 4+ (Neg); Urobilinogen, Urine NORM (Normal)
[2023-03-15 16:07] LABS: Appearance, Urine Hazy (Clear); Hyaline Casts 0-2 /lpf (0-2); Mucus Light (0-Heavy)
[2023-03-15 16:08] LABS: Amorphous Light (0-Heavy); Bacteria Mod /hpf; Red Blood Cells, Urine 0-2 /hpf (0-2); Squamous Epithelial Cells Rare /hpf (Few); White Blood Cells, Urine 0-2 /hpf (0-5)
[2023-03-15 17:18] VITALS: BP 160/101
[2023-03-15 17:22] VITALS: BP 157/92
--- NOTE | 2023-03-15 18:42 | NUR ---
PT ARRIVED FROM ED AT 1700. PT ORIETNED TO ROOM. PT FORGETFUL ABOUT SOME PAST MEDICAL HISTORY BUT APPEARS A&OX3. ABLE TO MAKE NEEDS KNOWN BUT DOES NEED ASSISTANCE WITH URNAL. CAROTID-CEREBRAL DUPLEX PERFORMED AT BEDSIDE. BED ALARM ON. BED IN LOWEST POSITION AND CALL LIGHT IN REACH.
[2023-03-15 19:32] VITALS: BP 152/87
[2023-03-16 02:35] VITALS: BP 133/94
--- NOTE | 2023-03-16 04:44 | NUR ---
SHIFT SUMMARY NOC PT A/O TO SELF. PLEASANTLY CONFUSED BUT COOPERATIVE WITH CARE. PT PULLED PERIPHERAL IV ACCESS AND NEW IV ACCESS PLACED IN LEFT WRIST. PT HAS BEEN INCONTINENT OF URINE X 2 SO FAR. ON TELE RUNNING SINUS BE IN MID TO HIGH 50'S. PT HAS SLEPT FOR MAJORITY OF SHIFT. PT HAS PALLIATIVE CARE CONSULT ORDERED AND WILL DISCUSS UPDATING POLST TODAY, AND ALSO HAS PT/OT/ST EVALUATIONS. PT IS CURRENTLY RESTING WITH BED ALARM ON, BED IN LOWEST POSITION, AND CALL LIGHT WITHIN REACH.
[2023-03-16 05:29] LABS: LDL/HDL RATIO 1.5; Very Low Density Lipoprot Chol 32 mg/dL (6-32)
[2023-03-16 05:30] LABS: CHOL/HDL RATIO 3.3; Cholesterol 141 mg/dL (50-200); HDL Cholesterol 43 mg/dL (>39); Low Density Lipoprotein Chol 66 mg/dL (0-110); Triglycerides 160 mg/dL (30-160)
[2023-03-16 07:06] VITALS: BP 182/88
[2023-03-16 08:38] VITALS: BP 164/100
--- NOTE | 2023-03-16 11:41 | NUR ---
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 Pt is resting in bed with his eyes closed upon arrival. Pt's sister is at bedside. Pt remains with his eyes closed throughout visit. Engaged in therapeutic discussion with sister Sara regarding POLST form. aSra is agreeable to complete POLST. Instructed on choices and meanings of each option. Assisted with completing POLST. POLST hung on Pt's whiteboard for hospitalist sign during next rounds. Educated on disease process including trajectory. Discussed the importance of planning for Pt's future as disease progresses. Discussed the potential need to establish POA or guardianship in the future as well. Sara expresses appreciation and reports no other concerns at this time. Spoke with Primary RN Joe and discussed case. Palliative Care will F/U after therapies evaluate.
[2023-03-16 15:05] VITALS: BP 156/87
--- NOTE | 2023-03-16 18:40 | NUR ---
SHIFT SUMMARY PT A&OX2-3. PT'S BP ELEVATED IN MORNING. MEDICATED PER EMAR AND DR. LAROSE NOTIFIED DURING ROUNDS. NEW ORDERS GIVEN. PT SOMNOLENT IN AM BUT MORE ALERT THE DAY PROGRESSED. PT WORKED WITH PHYSICAL THERAPY, OT AND ST TODAY. PALLIATIVE CARE IN TO TALK WITH PT AND SISTER. NA ON PT'S BOARD IN ROOM WAITING FOR MD SIGNITURE. COGNITIVE EVAL PERFORMED AND PT SCORED 16. PT ABLE TO GET UP TO CHAIR FOR MEALS. PT HAS SMALL BUMP ON NECK THAT IS TENDER TO THE TOUCH. FOARM DRESSING PLACED FOR PROTECTION. NO OTHER C/O PAIN. CHAIR AND BED ALARM ON T/O DAY. BED IN LOWEST POSITION AND CALL LIGHT IN REACH.
[2023-03-16 20:28] VITALS: BP 145/91
[2023-03-17 02:17] VITALS: BP 159/75
--- NOTE | 2023-03-17 05:09 | NUR ---
SHIFT SUMMARY PT SITTING UP IN CHAIR DURING BEDSIDE REPORT FROM LAM ROBB- PRESSURE ALARM IN PLACE WHILE IN CHAIR, PT REMOVED TELE MONITOR TWICE BEFORE GOING TO SLEEP FOR THE SHIFT, PT HAD INCREASED CONFUSION IN THE SHIFT- PT ASSISTED TO BSC, PT HAD INCONTIENT LOOSE STOOL, ASSISTED PT IN TO BED, PT SLEPT T/O NIGHT, BED LOW POSITION, CALL LIGHT WITHIN REACH, BED ALARM IN PLACE
[2023-03-17 07:16] VITALS: BP 140/69
--- NOTE | 2023-03-17 12:31 | NUR ---
Brief supportive visit this afternoon. Pt sitting in chair eating his lunch. Pt denies pain, anxiety, and nausea at this time. Pt does report mild dyspnea. Pt's sister Sara at bedside. Engaged in therapeutic discussion for sister to consider pursuing guardianship. Sister Sara reports not having the finances to pay for guardianship. Hospitalist has signed POLST. Obtained copy of POLST and delivered to medical records via hospital tube system. Provided original POLST to sister Sraa. Spoke with Occasional Caregiver Bailey and discussed case. Palliative Care will remain available
[2023-03-17 16:28] VITALS: BP 163/82
--- NOTE | 2023-03-17 18:15 | NUR ---
SHIFT SUMMARY PT AxOx2-3 WITH INTERM CONFUSION/FORGETFULNESS. PT IS PLEASANT AND COOPERATIVE WITH CARE. REQUIRES REDIRECTION AT TIMES TO STOP PULLING OFF HIS TELEMETRY/IV TUBING. PT HAS HAD SOME LOOSE BM'S THIS SHIFT. DENIED PAIN. PHYSICAL THERAPY WORKED WITH PT TODAY. HE AMBULATES WITH 1 ASSIST AND FWW. PT IS CURRENTLY SITTING UP IN CHAIR EATING DINNER. DENIES ANY NEEDS AT THIS TIME. CALL LIGHT IN REACH.
[2023-03-17 20:20] VITALS: BP 146/67
[2023-03-18 03:43] VITALS: BP 126/80
--- NOTE | 2023-03-18 06:51 | NUR ---
PT DID VERY WELL THIS EVENING FOLLOWED COMMANDS/ COOPERATIVE. DID HAVE A LARGE LOOSE STOOL WHICH HE HAS BEEN HAVING. BED ALARM IS IN PLACE PT IS REORIENTED EASILY BACK TO SELF IN THE HOSPITAL BUT DOES HAVE HX OF DEMENTIA, SO FAR PT PLEASENT AND COOPERATIVE.
[2023-03-18 07:47] VITALS: BP 145/75
--- NOTE | 2023-03-18 17:51 | NUR ---
DAYSHIFT SUMMARY Patient alert & oriented 2-3. CBGs WNL no SS insulin needed this shift. Patient OOB in chair for all meals. Vitals stable. Awaiting discharge planning.
[2023-03-18 21:00] VITALS: BP 152/93
[2023-03-19 02:47] VITALS: BP 151/98
[2023-03-19 05:33] LABS: Hematocrit 35.1 % (37.0-53.0); Hemoglobin 11.5 g/dL (13.5-17.5); Mean Corpuscular HGB 28.1 pg (26.0-34.0); Mean Corpuscular HGB Conc 32.8 g/dL (31.5-36.5); Mean Corpuscular Volume 86 fL (80-100); Mean Platelet Volume 11.6 fL (9.1-12.4); Platelet Count 215 K/mm3 (150-400); RDW Coefficient Variation 12.9 % (11.7-14.2); Red Blood Cell Count 4.09 M/mm3 (4.30-5.90); White Blood Cell Count 6.71 K/mm3 (4.00-11.30)
--- NOTE | 2023-03-19 05:48 | NUR ---
UNEVENTFUL EVENING WITH PT HAS CALLED APPROPRIATLY TO USE THE BATHROOM AND HAS NOT ATTEMPTED TO GET OUT OF BED, PT WAS VERY QUIET IN ROOM AND HASNT NEED MUCH TODAY
[2023-03-19 06:07] LABS: Bun/Creatinine Ratio 29.9 (12.0-20.0); Calcium, Blood 8.6 mg/dL (8.5-10.1); Creatinine, Blood 1.94 mg/dL (0.60-1.20); Potassium, Blood 3.6 mmol/L (3.5-5.5)
[2023-03-19 08:12] VITALS: BP 141/64
[2023-03-19 16:04] VITALS: BP 140/66
--- NOTE | 2023-03-19 16:34 | NUR ---
DAYSHIFT SUMMARY Patient alert & oriented x2-3. Patient very tired today, napping throughout the day. MD ordered NS 250mL bolus x1. Vitals stable. CBGs WNL, no SSI needed. Awaiting discharge planning.
[2023-03-19 20:59] VITALS: BP 140/76
[2023-03-20 01:07] VITALS: BP 145/65
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
[2023-03-20 05:33] LABS: Bun/Creatinine Ratio 25.5 (12.0-20.0); Calcium, Blood 8.5 mg/dL (8.5-10.1); Creatinine, Blood 1.96 mg/dL (0.60-1.20); Potassium, Blood 3.8 mmol/L (3.5-5.5)
[2023-03-20 07:39] VITALS: BP 133/73
[2023-03-20 15:28] VITALS: BP 171/97
--- NOTE | 2023-03-20 18:02 | NUR ---
SUMMARY- PT A/O X3, MILDLY FORGETFUL, WEAK. ABLE TO AMBULATE SBA STEADY BUT WEAK. 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 JORGE. TOLERATING FOOD AND FLUIDS. FREQ IS INCONT OF URINE. HAD A BM TODAY. HAD A BED BATH. USES CALL LIGHT TO MAKE NEEDS KNOWN. AWAITING PLACEMENT. WILL REPORT TO NOC RN
[2023-03-20 20:28] VITALS: BP 138/88
--- NOTE | 2023-03-21 05:03 | NUR ---
NO REALLY CHANGE IN PT CONDITION, CONFUSED AT TIMES BUT EASILY REOIRIENTED. PT LAYED QUIETLY AND HAD NO COMPLAINTS UNTIL HE WAS ASKED. PT C/O OF PAIN TO RIGHT SHOULDER WHERE MOLE IS LOCATED. ONCE PT RECEIVED MEDICATION HE WAS ABLE TO SLEEP. SO FAR PT HAS BEEN APPROPRIATE AND USING CALL LIGHT.
[2023-03-21 05:12] VITALS: BP 151/68
[2023-03-21 07:42] VITALS: BP 144/68
[2023-03-21 16:15] VITALS: BP 150/63
--- NOTE | 2023-03-21 18:39 | NUR ---
NO ACUTE CHANGES THIS SHIFT. ALERT AND ORIENTED X2. CALM AND COOPERATIVE. ABLE TO MAKE NEEDS KNOWN. ONE PERSON ASSIST. BED IS IN THE LOWEST POSITION WITH CALL LIGHT IN REACH
[2023-03-21 20:14] VITALS: BP 168/97
[2023-03-21 22:24] VITALS: BP 128/63
[2023-03-22 04:32] VITALS: BP 146/74
--- NOTE | 2023-03-22 05:01 | NUR ---
SHIFT SUMMARY PT A&O X2, COOPERATIVE WITH CARE. CLIENT BECOMES CONFUSED AT TIMES BUT EASILY REDIRECTABLE. PT 1P ASSIST WITH FFW. PT HAD AN EPISODE OF HIGH BP THIS SHIFT, MEDICATED PER EMAR WHICH WAS EFFECTIVE. PT COMPLAINED OF RIGHT SHOULDER PAIN. STATES HE HAS A BOTHERSOME MOLE THAT IS PAINFUL AND HE IS BEING SEEN OUTPATIENT FOR IT. MEPILEX IN PLACE TO COVER/PROTECT. BED KEPT IN LOWEST POSITION WITH CALL LIGHT IN REACH. PT KNOWS HOW TO MAKE NEEDS KNOWN.
[2023-03-22 07:47] VITALS: BP 157/95
[2023-03-22] MEDS ORDERED: CLOP75 PO (12:43)
--- NOTE | 2023-03-22 14:11 | NUR ---
DISCHARGE NOTE: MEDICAL TRANSPORT ARRIVED TO TAKE PATIENT TO [facility] VIA WHEELCHAIR. PATIENT'S SISTER AT BEDSIDE STATED THAT SHE WOULD FOLLOW PATIENT TO [facility]. PATIENT WAS DRESSING, BELONGINGS COLLECTED AND DISCHARGE PAPERS GIVEN TO MEDICAL TRANSPORT. NO SIGNS OR SYMPTOMS OF DISTRESS DURING DISCHARGE.
== END 2023-03-22 13:20 | DRG 65 ==
LOC: ER 12:45 → MEDS 13:20
PROVIDERS: Emergency Medicine; Hospitalist; Internal Medicine; Student in an Organized Health Care Education/Training Program; ADMIT Family Medicine
DX: I63.9 Cerebral infarction, unspecified (principal); G81.94 Hemiplegia, unspecified affecting left nondominant side; F31.9 Bipolar disorder, unspecified; F03.90 Unspecified dementia, unspecified severity, without behavioral disturbance, psychotic disturbance, mood disturbance, and anxiety; Z66 Do not resuscitate; Z51.5 Encounter for palliative care; I12.9 Hypertensive chronic kidney disease with stage 1 through stage 4 chronic kidney disease, or unspecified chronic kidney disease; E11.22 Type 2 diabetes mellitus with diabetic chronic kidney disease; N18.30 Chronic kidney disease, stage 3 unspecified; D63.1 Anemia in chronic kidney disease; F15.11 Other stimulant abuse, in remission; J44.9 Chronic obstructive pulmonary disease, unspecified; R26.9 Unspecified abnormalities of gait and mobility; Z87.891 Personal history of nicotine dependence
CPT/HCPCS: 36415; 70450; 71046; 80048; 80053; 80061; 81001; 82947; 85025; 85027; 92610; 93005; 93010; 93306; 93880; 96360; 96361; 96372; 97110; 97116; 97129; 97162; 97165; 97530; 97535; 99285-25; A9270; G0378; J1650; J1815; J2916; J7030; J7050

== ENCOUNTER 2023-04-21 09:45 | Emergency (ER) | payer OTHER ==
[~2023-04-21] VITALS: Ht 172.7 cm; Wt 63.5 kg
[~2023-04-21 09:45] MED LIST changes: +ACET325 PO; +BISA10S PR; +CLIN300 PO; +CLOP75 PO; +DULCOLAX400 MG/5 M PO; +LIDOCAINE1 EACH TOP; +LOPERAMIDE212 PO; +NYSTRIT TOP; +PROBIOTIC1 EA13 PO
[2023-04-21 11:22] LABS: BASOPHILS ABSOLUTE AUTO 0.03 K/mm3 (0.00-0.23); BASOPHILS PERCENT AUTO 0 % (0-2); EOSINOPHILS ABSOLUTE AUTO 0.33 K/mm3 (0.00-0.68); EOSINOPHILS PERCENT AUTO 3 % (0-6); Hematocrit 38.7 % (37.0-53.0); Hemoglobin 12.4 g/dL (13.5-17.5); IMMATURE GRAN ABSOLUTE AUTO 0.01 K/mm3 (0.00-0.10); IMMATURE GRAN PERCENT AUTO 0 % (0-1); LYMPHOCYTES ABSOLUTE AUTO 3.31 K/mm3 (0.84-5.20); LYMPHOCYTES PERCENT AUTO 34 % (21-46); MONOCYTES ABSOLUTE AUTO 0.58 K/mm3 (0.16-1.47); MONOCYTES PERCENT AUTO 6 % (4-13); Mean Corpuscular HGB 27.6 pg (26.0-34.0); Mean Corpuscular Volume 86 fL (80-100); Mean Platelet Volume 10.1 fL (9.1-12.4); NEUTROPHILS ABSOLUTE AUTO 5.56 K/mm3 (1.96-9.15); NEUTROPHILS PERCENT AUTO 57 % (41-73); Platelet Count 285 K/mm3 (150-400); RDW Coefficient Variation 13.1 % (11.7-14.2); RDW Standard Deviation 40.9 fL (35.1-46.3); Red Blood Cell Count 4.49 M/mm3 (4.30-5.90); White Blood Cell Count 9.82 K/mm3 (4.00-11.30)
[2023-04-21 11:55] LABS: Albumin, Blood 3.7 g/dL (3.4-5.0); Albumin/Globulin Ratio 0.9 (0.8-1.8); Bilirubin, Total 0.2 mg/dL (0.1-1.0); Bun/Creatinine Ratio 27.4 (12.0-20.0); Calcium, Blood 8.5 mg/dL (8.5-10.1); Creatinine, Blood 1.9 mg/dL (0.60-1.20); Globulin, Blood 4.3 g/dL (2.2-4.0); Potassium, Blood 4.4 mmol/L (3.5-5.5)
[2023-04-21 13:57] LABS: Source, Urine Clean Catch
[2023-04-21 14:05] LABS: Appearance, Urine Clear (Clear); Bilirubin, Urine Neg (Neg); Blood, Urine Neg (Neg); Color, Urine Yellow (P-Yellow); Glucose Qualitative, Urine Neg (Neg); Ketones, Urine Neg (Neg); Leukocyte Esterase, Urine Neg (Neg); Nitrite, Urine Neg (Neg); Protein, Urine 2+ (Neg); Specific Gravity, Urine 1.015 (1.003-1.022); Urobilinogen, Urine NORM (Normal)
[2023-04-21 14:18] LABS: Bacteria Rare /hpf; Hyaline Casts 0-2 /lpf (0-2); Red Blood Cells, Urine 0-2 /hpf (0-2); Squamous Epithelial Cells Rare /hpf (Few); White Blood Cells, Urine 0-2 /hpf (0-5)
[2023-04-21] MEDS ORDERED: GABA300 PO (16:57)
[2023-04-21] MEDS ORDERED: Voltaren100 GM TOP (16:57)
[2023-04-21 17:31] VITALS: BP 168/74
== END 2023-04-21 17:33 | disposition home or self-care (01) ==
LOC: ER 09:45
PROVIDERS: Physician Assistant
DX: M47.816 Spondylosis without myelopathy or radiculopathy, lumbar region (principal); M47.814 Spondylosis without myelopathy or radiculopathy, thoracic region; I12.9 Hypertensive chronic kidney disease with stage 1 through stage 4 chronic kidney disease, or unspecified chronic kidney disease; E11.22 Type 2 diabetes mellitus with diabetic chronic kidney disease; N18.9 Chronic kidney disease, unspecified; F03.90 Unspecified dementia, unspecified severity, without behavioral disturbance, psychotic disturbance, mood disturbance, and anxiety; F31.9 Bipolar disorder, unspecified; F17.200 Nicotine dependence, unspecified, uncomplicated; Z79.82 Long term (current) use of aspirin; Z79.02 Long term (current) use of antithrombotics/antiplatelets; Z79.899 Other long term (current) drug therapy
CPT/HCPCS: 74177; 80053; 81001; 85025; 99284-25; A9270; Q9967

== ENCOUNTER → 2023-08-22 | Outpatient (CLI) | payer OTHER ==
[~2023-08-22] MED LIST changes: +GABA300 PO; +Voltaren100 GM TOP
[2023-08-22 16:12] LABS: BASOPHILS ABSOLUTE AUTO 0.03 K/mm3 (0.00-0.23); BASOPHILS PERCENT AUTO 0 % (0-2); EOSINOPHILS ABSOLUTE AUTO 0.26 K/mm3 (0.00-0.68); EOSINOPHILS PERCENT AUTO 3 % (0-6); Hematocrit 36.4 % (37.0-53.0); IMMATURE GRAN ABSOLUTE AUTO 0.02 K/mm3 (0.00-0.10); IMMATURE GRAN PERCENT AUTO 0 % (0-1); LYMPHOCYTES ABSOLUTE AUTO 2.68 K/mm3 (0.84-5.20); LYMPHOCYTES PERCENT AUTO 34 % (21-46); MONOCYTES ABSOLUTE AUTO 0.37 K/mm3 (0.16-1.47); MONOCYTES PERCENT AUTO 5 % (4-13); Mean Corpuscular HGB 29.1 pg (26.0-34.0); Mean Corpuscular Volume 88 fL (80-100); NEUTROPHILS ABSOLUTE AUTO 4.47 K/mm3 (1.96-9.15); NEUTROPHILS PERCENT AUTO 57 % (41-73); Platelet Count 243 K/mm3 (150-400); RDW Coefficient Variation 12.4 % (11.7-14.2); RDW Standard Deviation 40.1 fL (35.1-46.3); Red Blood Cell Count 4.13 M/mm3 (4.30-5.90); White Blood Cell Count 7.83 K/mm3 (4.00-11.30)
[2023-08-22 16:55] LABS: Albumin, Blood 3.8 g/dL (3.4-5.0); Albumin/Globulin Ratio 0.9 (0.8-1.8); Bilirubin, Total 0.3 mg/dL (0.1-1.0); Bun/Creatinine Ratio 27.5 (12.0-20.0); Calcium, Blood 9.1 mg/dL (8.5-10.1); Creatinine, Blood 2.04 mg/dL (0.60-1.20); Globulin, Blood 4.1 g/dL (2.2-4.0); Potassium, Blood 4.8 mmol/L (3.5-5.5); Total Protein, Blood 7.9 g/dL (6.4-8.2)
== END | disposition home or self-care (01) ==
LOC: LAB 15:09 → LAB SHORT 15:09
PROVIDERS: Family Medicine
DX: I12.9 Hypertensive chronic kidney disease with stage 1 through stage 4 chronic kidney disease, or unspecified chronic kidney disease (principal); N18.9 Chronic kidney disease, unspecified
CPT/HCPCS: 80053; 85025

== ENCOUNTER → 2023-09-06 | Outpatient (CLI) | payer OTHER ==
[2023-09-06 15:11] LABS: Protein, Urine Quantitative 65.2 mg/dL (0.0-11.9)
[2023-09-06 15:37] LABS: Creatinine Urine 76.7 mg/dL (27.00-270.00)
== END | disposition home or self-care (01) ==
LOC: LAB 12:00 → LAB SHORT 12:00
PROVIDERS: Internal Medicine Nephrology
DX: N18.30 Chronic kidney disease, stage 3 unspecified (principal); D63.1 Anemia in chronic kidney disease; N25.81 Secondary hyperparathyroidism of renal origin; E55.9 Vitamin D deficiency, unspecified; E29.1 Testicular hypofunction; R76.9 Abnormal immunological finding in serum, unspecified; R94.5 Abnormal results of liver function studies; R94.6 Abnormal results of thyroid function studies
CPT/HCPCS: 81050; 82043; 82570; 84156

== ENCOUNTER → 2024-04-18 | Outpatient (CLI) | payer OTHER ==
[~2024-04-18] MED LIST changes: +BASAGLAR K100 UNIT/1 SC; -BUPR100ER PO; +BUPR150ER PO; +CALC.25 PO; -CARV6.25 PO; +Carvedilol12.5 MG PO; +DOXA2 PO; +FIRVANQ50 MG/1 ML PO; +HYDR100 PO; +IPRATROPIUM BRO30 ML; +RYBELSUS3 MG PO
[2024-04-18 19:33] LABS: BASOPHILS ABSOLUTE AUTO 0.05 K/mm3 (0.00-0.23); BASOPHILS PERCENT AUTO 1 % (0-2); EOSINOPHILS ABSOLUTE AUTO 0.32 K/mm3 (0.00-0.68); EOSINOPHILS PERCENT AUTO 4 % (0-6); Hematocrit 38.1 % (37.0-53.0); Hemoglobin 12.3 g/dL (13.5-17.5); IMMATURE GRAN ABSOLUTE AUTO 0.02 K/mm3 (0.00-0.10); IMMATURE GRAN PERCENT AUTO 0 % (0-1); LYMPHOCYTES ABSOLUTE AUTO 2.53 K/mm3 (0.84-5.20); LYMPHOCYTES PERCENT AUTO 32 % (21-46); MONOCYTES ABSOLUTE AUTO 0.43 K/mm3 (0.16-1.47); MONOCYTES PERCENT AUTO 6 % (4-13); Mean Corpuscular HGB 26.9 pg (26.0-34.0); Mean Corpuscular HGB Conc 32.3 g/dL (31.5-36.5); Mean Corpuscular Volume 83 fL (80-100); Mean Platelet Volume 12.2 fL (9.1-12.4); NEUTROPHILS ABSOLUTE AUTO 4.53 K/mm3 (1.96-9.15); NEUTROPHILS PERCENT AUTO 57 % (41-73); Platelet Count 209 K/mm3 (150-400); RDW Coefficient Variation 13.7 % (11.7-14.2); RDW Standard Deviation 40.6 fL (35.1-46.3); Red Blood Cell Count 4.57 M/mm3 (4.30-5.90); White Blood Cell Count 7.88 K/mm3 (4.00-11.30)
[2024-04-18 20:22] LABS: Alanine Aminotransfer (ALT/SGP 27 U/L (12-78); Albumin, Blood 3.7 g/dL (3.4-5.0); Albumin/Globulin Ratio 0.9 (0.8-1.8); Alk Phos 85 U/L (50-136); Anion Gap 11 mmol/L (3-11); Aspartate Aminotrans (AST/SGOT 27 U/L (12-37); Bilirubin, Total 0.5 mg/dL (0.1-1.0); Blood Urea Nitrogen 50 mg/dL (8-24); Bun/Creatinine Ratio 22.8 (12.0-20.0); CHOL/HDL RATIO 4.4; CO2, Blood 25 mmol/L (21-32); Calcium, Blood 8.8 mg/dL (8.5-10.1); Chloride, Blood 111 mmol/L (98-108); Cholesterol 163 mg/dL (50-200); Creatinine, Blood 2.19 mg/dL (0.60-1.20); Globulin, Blood 3.9 g/dL (2.2-4.0); Glomerular Filtration Rate 31 (60-); Glucose, Blood 120 mg/dL (70-99); HDL Cholesterol 37 mg/dL (>39); LDL/HDL RATIO Unable to Calculate; Low Density Lipoprotein Chol Unable to Calculate mg/dL (0-110); Potassium, Blood 4.4 mmol/L (3.5-5.5); Sodium, Blood 143 mmol/L (136-145); Total Protein, Blood 7.6 g/dL (6.4-8.2); Triglycerides 433 mg/dL (30-160); Very Low Density Lipoprot Chol Unable to Calculate mg/dL (6-32)
[2024-04-18 20:33] LABS: LDL Direct Measurement 86 mg/dL (0-130)
== END | disposition home or self-care (01) ==
LOC: LAB SHORT 18:39 → LAB 18:39
PROVIDERS: Family Medicine
DX: E78.2 Mixed hyperlipidemia (principal); E11.69 Type 2 diabetes mellitus with other specified complication
CPT/HCPCS: 80053; 80061; 83036; 83721; 85025

== ENCOUNTER 2024-05-05 22:45 | Inpatient (IN) | payer OTHER ==
[~2024-05-05] VITALS: Ht 172.7 cm; Wt 86.2 kg
[2024-05-05 23:01] LABS: BASOPHILS ABSOLUTE AUTO 0.03 K/mm3 (0.00-0.23); BASOPHILS PERCENT AUTO 0 % (0-2); EOSINOPHILS PERCENT AUTO 1 % (0-6); Hematocrit 35.1 % (37.0-53.0); Hemoglobin 11.3 g/dL (13.5-17.5); IMMATURE GRAN ABSOLUTE AUTO 0.03 K/mm3 (0.00-0.10); IMMATURE GRAN PERCENT AUTO 0 % (0-1); LYMPHOCYTES ABSOLUTE AUTO 2.55 K/mm3 (0.84-5.20); LYMPHOCYTES PERCENT AUTO 25 % (21-46); MONOCYTES ABSOLUTE AUTO 0.53 K/mm3 (0.16-1.47); MONOCYTES PERCENT AUTO 5 % (4-13); Mean Corpuscular HGB 27.4 pg (26.0-34.0); Mean Corpuscular HGB Conc 32.2 g/dL (31.5-36.5); Mean Corpuscular Volume 85 fL (80-100); Mean Platelet Volume 10.4 fL (9.1-12.4); NEUTROPHILS ABSOLUTE AUTO 7.03 K/mm3 (1.96-9.15); NEUTROPHILS PERCENT AUTO 68 % (41-73); Platelet Count 190 K/mm3 (150-400); RDW Coefficient Variation 13.9 % (11.7-14.2); RDW Standard Deviation 43.4 fL (35.1-46.3); Red Blood Cell Count 4.13 M/mm3 (4.30-5.90); White Blood Cell Count 10.27 K/mm3 (4.00-11.30)
[2024-05-05 23:22] LABS: Albumin, Blood 3.7 g/dL (3.4-5.0); Albumin/Globulin Ratio 0.9 (0.8-1.8); Bilirubin, Total 0.4 mg/dL (0.1-1.0); Bun/Creatinine Ratio 19.9 (12.0-20.0); Calcium, Blood 9.1 mg/dL (8.5-10.1); Creatinine, Blood 2.16 mg/dL (0.60-1.20); Globulin, Blood 3.9 g/dL (2.2-4.0); Potassium, Blood 4.1 mmol/L (3.5-5.5); Total Protein, Blood 7.6 g/dL (6.4-8.2)
[2024-05-06] MEDS ORDERED: Ipratropium/Albuterol SulF 2.5-0.5MG/3 ML Amp INH ONE (00:25)
[2024-05-06] MEDS ORDERED: CefTRIAXone Sodium 1,000 MG in NS 50 ML IV ONE (01:10)
[2024-05-06] MEDS ORDERED: Azithromycin 500 MG in NS 250 ML IV ONE (01:10)
[2024-05-06] MEDS ORDERED: Ipratropium/Albuterol SulF 2.5-0.5MG/3 ML Amp INH PRN (02:00)
[2024-05-06] MEDS ORDERED: FLU VACC TS2024-25(6MOS UP)/PF 45 MCG/0.5 ML SYRINGE IM ONE (02:00)
[2024-05-06] MEDS ORDERED: Ondansetron HCl 2 MG / ML 2ML Vial IV PRN (02:00)
[2024-05-06] MEDS ORDERED: NS 1,000 ML IV ONE (02:00)
[2024-05-06] MEDS ORDERED: MethylPREDNISolone Sod Succ 125 MG Vial IV SCH (03:00)
[2024-05-06 03:31] VITALS: BP 149/66
[2024-05-06 04:27] LABS: BASOPHILS ABSOLUTE AUTO 0.02 K/mm3 (0.00-0.23); BASOPHILS PERCENT AUTO 0 % (0-2); EOSINOPHILS ABSOLUTE AUTO 0.07 K/mm3 (0.00-0.68); EOSINOPHILS PERCENT AUTO 1 % (0-6); Hematocrit 34.6 % (37.0-53.0); Hemoglobin 10.8 g/dL (13.5-17.5); IMMATURE GRAN ABSOLUTE AUTO 0.04 K/mm3 (0.00-0.10); IMMATURE GRAN PERCENT AUTO 0 % (0-1); LYMPHOCYTES PERCENT AUTO 15 % (21-46); MONOCYTES ABSOLUTE AUTO 0.58 K/mm3 (0.16-1.47); MONOCYTES PERCENT AUTO 6 % (4-13); Mean Corpuscular HGB 26.9 pg (26.0-34.0); Mean Corpuscular HGB Conc 31.2 g/dL (31.5-36.5); Mean Corpuscular Volume 86 fL (80-100); Mean Platelet Volume 10.5 fL (9.1-12.4); NEUTROPHILS PERCENT AUTO 78 % (41-73); Platelet Count 188 K/mm3 (150-400); RDW Coefficient Variation 14.1 % (11.7-14.2); RDW Standard Deviation 44.4 fL (35.1-46.3); Red Blood Cell Count 4.02 M/mm3 (4.30-5.90); White Blood Cell Count 9.91 K/mm3 (4.00-11.30)
[2024-05-06 05:11] LABS: Albumin, Blood 3.5 g/dL (3.4-5.0); Albumin/Globulin Ratio 0.9 (0.8-1.8); Bilirubin, Total 0.5 mg/dL (0.1-1.0); Bun/Creatinine Ratio 17.5 (12.0-20.0); Calcium, Blood 8.8 mg/dL (8.5-10.1); Creatinine, Blood 2.34 mg/dL (0.60-1.20); Globulin, Blood 3.9 g/dL (2.2-4.0); Potassium, Blood 4.1 mmol/L (3.5-5.5); Total Protein, Blood 7.4 g/dL (6.4-8.2)
[2024-05-06 07:24] VITALS: BP 168/75
[2024-05-06] MEDS ORDERED: Albuterol HFA200 ACT/6.7 GM INH INH PRN (07:55)
[2024-05-06] MEDS ORDERED: Carvedilol 6.25 MG Tab PO SCH (08:00)
[2024-05-06] MEDS ORDERED: Enoxaparin 40 MG/0.4 ML SYR SC SCH (09:00)
[2024-05-06] MEDS ORDERED: ARIPiprazole 2 MG Tablet PO SCH (09:00)
[2024-05-06] MEDS ORDERED: buPROPion HCL 150 MG TAB.SR.12H PO SCH (09:00)
[2024-05-06] MEDS ORDERED: Calcitriol 0.25 MCG Cap PO SCH (09:00)
[2024-05-06] MEDS ORDERED: HydrALAZINE HCl 50 MG Tab PO SCH (09:00)
[2024-05-06] MEDS ORDERED: Sertraline HCl 50 MG Tab PO SCH (09:00)
[2024-05-06] MEDS ORDERED: Gabapentin 300 MG Cap PO SCH (09:00)
[2024-05-06] MEDS ORDERED: Ipratropium Bromide 0.03% Nasal Spray SCH (09:00)
[2024-05-06] MEDS ORDERED: Insulin Human Lispro 100 Units/ML 3ML Syringe SC SCH (10:00)
[2024-05-06 14:22] VITALS: BP 142/75
[2024-05-06 16:03] VITALS: BP 158/58
[2024-05-06 16:25] LABS: Adenovirus Not Detected (NOT DETECT); Bordetella pertussis Not Detected (NOT DETECT); Chlamydophila pneumoniae Not Detected (NOT DETECT); Coronavirus 229E Not Detected (NOT DETECT); Coronavirus HKU1 Not Detected (NOT DETECT); Coronavirus NL63 Not Detected (NOT DETECT); Coronavirus OC43 Not Detected (NOT DETECT); Human Metapneumovirus Not Detected (NOT DETECT); Human Rhinovirus/Enterovirus Detected (NOT DETECT); Influenza A/2009-H1 Not Detected (NOT DETECT); Influenza A/H1 Not Detected (NOT DETECT); Influenza A/H3 Not Detected (NOT DETECT); Influenza B Not Detected (NOT DETECT); Mycoplasma pneumoniae Not Detected (NOT DETECT); Parainfluenza Virus 1 Not Detected (NOT DETECT); Parainfluenza Virus 2 Not Detected (NOT DETECT); Parainfluenza Virus 3 Not Detected (NOT DETECT); Parainfluenza Virus 4 Not Detected (NOT DETECT); Respiratory Syncytial Virus Not Detected (NOT DETECT); SARS-Cov-2 (COVID-19), BioFire Not Detected (NOT DETECT)
[2024-05-06] MEDS ORDERED: AmLODIPine Besylate 5 MG Tab PO SCH (21:00)
[2024-05-06] MEDS ORDERED: Donepezil HCl 5 MG Tab PO SCH (21:00)
[2024-05-06] MEDS ORDERED: Doxazosin Mesylate 2 MG Tab PO SCH (21:00)
[2024-05-06] MEDS ORDERED: Azithromycin 500 MG in NS 250 ML IV SCH (21:00)
[2024-05-06] MEDS ORDERED: CefTRIAXone Sodium 1,000 MG in NS 100 ML IV SCH (21:00)
[2024-05-06] MEDS ORDERED: Insulin Glargine-Yfgn 100 Unit/mL 3 ML SYR SC SCH (21:00)
[2024-05-06 21:35] VITALS: BP 134/76
[2024-05-07] MEDS ORDERED: NS 250 ML IV PRN (04:45)
[2024-05-07 04:59] VITALS: BP 135/66
[2024-05-07 05:19] LABS: BASOPHILS ABSOLUTE AUTO 0.01 K/mm3 (0.00-0.23); BASOPHILS PERCENT AUTO 0 % (0-2); EOSINOPHILS PERCENT AUTO 0 % (0-6); Hematocrit 34.7 % (37.0-53.0); Hemoglobin 10.8 g/dL (13.5-17.5); IMMATURE GRAN ABSOLUTE AUTO 0.14 K/mm3 (0.00-0.10); IMMATURE GRAN PERCENT AUTO 1 % (0-1); LYMPHOCYTES ABSOLUTE AUTO 1.08 K/mm3 (0.84-5.20); LYMPHOCYTES PERCENT AUTO 8 % (21-46); MONOCYTES PERCENT AUTO 1 % (4-13); Mean Corpuscular HGB Conc 31.1 g/dL (31.5-36.5); Mean Corpuscular Volume 87 fL (80-100); Mean Platelet Volume 11.3 fL (9.1-12.4); NEUTROPHILS ABSOLUTE AUTO 11.54 K/mm3 (1.96-9.15); NEUTROPHILS PERCENT AUTO 90 % (41-73); Platelet Count 209 K/mm3 (150-400); RDW Coefficient Variation 14.2 % (11.7-14.2); RDW Standard Deviation 45.1 fL (35.1-46.3); White Blood Cell Count 12.87 K/mm3 (4.00-11.30)
[2024-05-07 05:42] LABS: Albumin, Blood 3.1 g/dL (3.4-5.0); Albumin/Globulin Ratio 0.8 (0.8-1.8); Bilirubin, Total 0.4 mg/dL (0.1-1.0); Bun/Creatinine Ratio 22.7 (12.0-20.0); Calcium, Blood 8.6 mg/dL (8.5-10.1); Creatinine, Blood 2.73 mg/dL (0.60-1.20); Potassium, Blood 4.7 mmol/L (3.5-5.5); Total Protein, Blood 7.1 g/dL (6.4-8.2)
[2024-05-07 07:46] VITALS: BP 140/66
[2024-05-07] MEDS ORDERED: CefTRIAXone Sodium 2,000 MG in NS 100 ML IV SCH (14:00)
[2024-05-07 15:38] VITALS: BP 153/71
[2024-05-07 19:18] VITALS: BP 148/58
[2024-05-08] MEDS ORDERED: Acetaminophen 325 MG TABLET PO PRN (00:15)
[2024-05-08 04:46] VITALS: BP 156/74
[2024-05-08 04:57] LABS: BASOPHILS ABSOLUTE AUTO 0.03 K/mm3 (0.00-0.23); BASOPHILS PERCENT AUTO 0 % (0-2); EOSINOPHILS PERCENT AUTO 0 % (0-6); Hematocrit 36.2 % (37.0-53.0); Hemoglobin 10.9 g/dL (13.5-17.5); IMMATURE GRAN ABSOLUTE AUTO 0.27 K/mm3 (0.00-0.10); IMMATURE GRAN PERCENT AUTO 2 % (0-1); LYMPHOCYTES ABSOLUTE AUTO 1.26 K/mm3 (0.84-5.20); LYMPHOCYTES PERCENT AUTO 7 % (21-46); MONOCYTES ABSOLUTE AUTO 0.18 K/mm3 (0.16-1.47); MONOCYTES PERCENT AUTO 1 % (4-13); Mean Corpuscular HGB 26.7 pg (26.0-34.0); Mean Corpuscular HGB Conc 30.1 g/dL (31.5-36.5); Mean Corpuscular Volume 89 fL (80-100); Mean Platelet Volume 10.6 fL (9.1-12.4); NEUTROPHILS ABSOLUTE AUTO 15.75 K/mm3 (1.96-9.15); NEUTROPHILS PERCENT AUTO 90 % (41-73); Platelet Count 221 K/mm3 (150-400); RDW Coefficient Variation 14.3 % (11.7-14.2); RDW Standard Deviation 45.8 fL (35.1-46.3); Red Blood Cell Count 4.09 M/mm3 (4.30-5.90); White Blood Cell Count 17.49 K/mm3 (4.00-11.30)
[2024-05-08 05:28] LABS: Albumin, Blood 3.3 g/dL (3.4-5.0); Anion Gap 13 mmol/L (3-11); Blood Urea Nitrogen 76 mg/dL (8-24); Bun/Creatinine Ratio 25.8 (12.0-20.0); CO2, Blood 24 mmol/L (21-32); Calcium, Blood 8.6 mg/dL (8.5-10.1); Chloride, Blood 106 mmol/L (98-108); Creatinine, Blood 2.95 mg/dL (0.60-1.20); Glomerular Filtration Rate 22 (60-); Glucose, Blood 281 mg/dL (70-99); Phosphorus, Blood 5.5 mg/dL (2.5-4.9); Potassium, Blood 4.6 mmol/L (3.5-5.5); Sodium, Blood 138 mmol/L (136-145)
[2024-05-08 07:33] VITALS: BP 148/79
[2024-05-08] MEDS ORDERED: Sevelamer Carbonate 800 MG Tab PO SCH (08:30)
[2024-05-08] MEDS ORDERED: Cefpodoxime Proxetil 200 MG Tab PO ONE (14:50)
[2024-05-08 15:10] VITALS: BP 129/82
[2024-05-08] MEDS ORDERED: CEFP200 PO (15:42)
[2024-05-08] MEDS ORDERED: SEVEC800 PO (15:44)
[2024-05-08] MEDS ORDERED: VISBIOME 112.51 EACH PO (15:44)
[2024-05-08] MEDS ORDERED: PRED20 PO (15:44)
== END 2024-05-08 17:34 | disposition home or self-care (01) | DRG 177 ==
LOC: ER 22:45 → MEDS 05-06 01:55 → ENPENDDIS 05-08 16:50 → MEDS 05-08 17:34
PROVIDERS: Emergency Medicine; Family Medicine; ADMIT Internal Medicine
DX: J15.8 Pneumonia due to other specified bacteria (principal); A41.4 Sepsis due to anaerobes; A41.89 Other specified sepsis; J96.01 Acute respiratory failure with hypoxia; J44.0 Chronic obstructive pulmonary disease with (acute) lower respiratory infection; J44.1 Chronic obstructive pulmonary disease with (acute) exacerbation; N25.81 Secondary hyperparathyroidism of renal origin; J12.89 Other viral pneumonia; E11.22 Type 2 diabetes mellitus with diabetic chronic kidney disease; N18.30 Chronic kidney disease, stage 3 unspecified; E11.40 Type 2 diabetes mellitus with diabetic neuropathy, unspecified; F01.50 Vascular dementia, unspecified severity, without behavioral disturbance, psychotic disturbance, mood disturbance, and anxiety; G25.2 Other specified forms of tremor; G89.29 Other chronic pain; M47.816 Spondylosis without myelopathy or radiculopathy, lumbar region; F31.9 Bipolar disorder, unspecified; D63.1 Anemia in chronic kidney disease; E78.5 Hyperlipidemia, unspecified; B97.89 Other viral agents as the cause of diseases classified elsewhere; Z86.711 Personal history of pulmonary embolism; Z86.718 Personal history of other venous thrombosis and embolism; Z79.4 Long term (current) use of insulin; Z79.899 Other long term (current) drug therapy; Z85.828 Personal history of other malignant neoplasm of skin; Z86.79 Personal history of other diseases of the circulatory system
CPT/HCPCS: 0202U; 36415; 71045; 78582; 80053; 80069; 82947; 83605; 83880; 84145; 84484; 85025; 87040; 87070; 87077; 87205; 93005; 93010; 94640; 94664; 94760; 94761; 96365; 99285-25; A9270; A9540; J0456; J0696; J1650; J1815; J2919; J7030; J7050

== ENCOUNTER 2024-06-08 11:56 | Emergency (ER) | payer OTHER ==
[~2024-06-08] VITALS: Ht 167.6 cm; Wt 81.7 kg
[~2024-06-08 11:56] MED LIST changes: +CEFP200 PO; +PRED20 PO; +SEVEC800 PO; +VISBIOME 112.51 EACH PO
[2024-06-08] MEDS ORDERED: Clindamycin 600mg in D5W 50 ML IV ONE (12:10)
[2024-06-08 12:49] LABS: BASOPHILS ABSOLUTE AUTO 0.01 K/mm3 (0.00-0.23); BASOPHILS PERCENT AUTO 0 % (0-2); EOSINOPHILS ABSOLUTE AUTO 0.09 K/mm3 (0.00-0.68); EOSINOPHILS PERCENT AUTO 2 % (0-6); Hematocrit 31.3 % (37.0-53.0); Hemoglobin 9.9 g/dL (13.5-17.5); IMMATURE GRAN ABSOLUTE AUTO 0.04 K/mm3 (0.00-0.10); IMMATURE GRAN PERCENT AUTO 1 % (0-1); LYMPHOCYTES PERCENT AUTO 31 % (21-46); MONOCYTES ABSOLUTE AUTO 0.23 K/mm3 (0.16-1.47); MONOCYTES PERCENT AUTO 5 % (4-13); Mean Corpuscular HGB Conc 31.6 g/dL (31.5-36.5); Mean Corpuscular Volume 86 fL (80-100); Mean Platelet Volume 10.8 fL (9.1-12.4); NEUTROPHILS ABSOLUTE AUTO 2.97 K/mm3 (1.96-9.15); NEUTROPHILS PERCENT AUTO 61 % (41-73); Platelet Count 164 K/mm3 (150-400); RDW Coefficient Variation 13.2 % (11.7-14.2); RDW Standard Deviation 41.4 fL (35.1-46.3); Red Blood Cell Count 3.66 M/mm3 (4.30-5.90); White Blood Cell Count 4.84 K/mm3 (4.00-11.30)
[2024-06-08 13:13] LABS: C-Reactive Protein, High Sens. 5.81 mg/dL (0.000-3.000)
[2024-06-08 13:19] LABS: Source, Urine Clean Catch
[2024-06-08 13:24] LABS: Appearance, Urine Clear (Clear); Bilirubin, Urine Neg (Neg); Blood, Urine Neg (Neg); Color, Urine Yellow (P-Yellow); Glucose Qualitative, Urine 4+ (Neg); Ketones, Urine Neg (Neg); Leukocyte Esterase, Urine Neg (Neg); Nitrite, Urine Neg (Neg); Protein, Urine 2+ (Neg); Urobilinogen, Urine NORM (Normal)
[2024-06-08] MEDS ORDERED: FIBER500 MG (13:32)
[2024-06-08 13:35] LABS: Bacteria Rare /hpf; Red Blood Cells, Urine 0-2 /hpf (0-2); Squamous Epithelial Cells Not Seen /hpf (Few); White Blood Cells, Urine 0-2 /hpf (0-5)
[2024-06-08 13:54] LABS: Albumin, Blood 3.1 g/dL (3.4-5.0); Albumin/Globulin Ratio 0.8 (0.8-1.8); Bilirubin, Total 0.3 mg/dL (0.1-1.0); Bun/Creatinine Ratio 19.3 (12.0-20.0); Calcium, Blood 8.7 mg/dL (8.5-10.1); Creatinine, Blood 3.01 mg/dL (0.60-1.20); Globulin, Blood 3.7 g/dL (2.2-4.0); Potassium, Blood 4.6 mmol/L (3.5-5.5); Total Protein, Blood 6.8 g/dL (6.4-8.2)
[2024-06-08] MEDS ORDERED: NS 1,000 ML IV SCH (14:00)
[2024-06-08] MEDS ORDERED: Insulin Regular 100 Unit/ML 1ML Dose IV ONE (14:00)
[2024-06-08 15:44] VITALS: BP 132/84
== END 2024-06-08 16:40 | disposition home or self-care (01) ==
LOC: ER 11:56
PROVIDERS: Emergency Medicine
DX: L03.114 Cellulitis of left upper limb (principal); D64.9 Anemia, unspecified; E11.65 Type 2 diabetes mellitus with hyperglycemia; E11.22 Type 2 diabetes mellitus with diabetic chronic kidney disease; D63.1 Anemia in chronic kidney disease; J44.9 Chronic obstructive pulmonary disease, unspecified; Z79.899 Other long term (current) drug therapy; N18.30 Chronic kidney disease, stage 3 unspecified; E11.40 Type 2 diabetes mellitus with diabetic neuropathy, unspecified; E78.5 Hyperlipidemia, unspecified; F17.200 Nicotine dependence, unspecified, uncomplicated
CPT/HCPCS: 80053; 81001; 82947; 83605; 85025; 85651; 86141; 96365; 99283-25; J1815; J7030

== ENCOUNTER → 2025-01-23 | Outpatient (CLI) | payer OTHER ==
[~2025-01-23] MED LIST changes: +FIBER500 MG
[2025-01-23 10:44] LABS: Protein, Urine Quantitative 66.4 mg/dL (0.0-11.9)
[2025-01-23 10:48] LABS: Microalbumin, Urine Quant. 533.0 mg/L (0.000-20.000)
== END ==
LOC: LAB 09:07 → LAB SHORT 09:07
PROVIDERS: Internal Medicine Nephrology
DX: N18.4 Chronic kidney disease, stage 4 (severe) (principal); D63.1 Anemia in chronic kidney disease; N25.81 Secondary hyperparathyroidism of renal origin; E55.9 Vitamin D deficiency, unspecified; E78.00 Pure hypercholesterolemia, unspecified; R76.9 Abnormal immunological finding in serum, unspecified; R94.5 Abnormal results of liver function studies; R94.6 Abnormal results of thyroid function studies
CPT/HCPCS: 82043; 82570; 84156